=== PATIENT | male | born 1965 | race Hispanic/Latino ===

== ENCOUNTER 2019-05-29 14:17 | Inpatient (IN) | payer OTHER ==
[~2019-05-29] VITALS: Ht 165.1 cm; Wt 69.3 kg
[2019-05-29 14:47] LABS: BASOPHILS % (AUTO) 0.8 % (0.0-5.0); MEAN CORPUSCULAR HEMOGLOBIN 31.7 pg (27.0-33.0); MEAN CORPUSCULAR HGB CONC 34.7 g/dL (32.0-36.0); MEAN CORPUSCULAR VOLUME 91.4 fL (79-99); MONOCYTES % (AUTO) 4.2 % (3.0-13.0); PLATELET COUNT (AUTO) 223 K/uL (130-400); RED CELL DISTRIBUTION WIDTH 16.2 % (11.0-15.5); WHITE BLOOD COUNT (AUTO) 7.8 K/uL (4.8-10.8)
[2019-05-29] MEDS ORDERED: METOCLOPRAMIDE 10 MG/2 ML VIAL ONE (14:50)
[2019-05-29] MEDS ORDERED: SODIUM CHLORIDE 0.9% 1000ML 1,000 ML IV ONE (14:51)
[2019-05-29 14:55] LABS: APPEARANCE,URINE Clear (CLEAR); BILIRUBIN,URINE Negative (NEGATIVE); COLOR,URINE Yellow (YELLOW); GLUCOSE, URINE (UA) 250 mg/dL (NEGATIVE); KETONES,URINE Negative (NEGATIVE); LEUKOCYTE ESTERASE ,URINE Negative (NEGATIVE); NITRATE,URINE Negative (NEGATIVE); OCCULT BLOOD,URINE Small (NEGATIVE); PH,URINE 5.5 (5.0-8.0); PROTEIN,URINE >=1000 mg/dL (NEGATIVE); UROBILINOGEN,URINE 0.2 mg/dL (0.2-1.0)
[2019-05-29 15:02] LABS: ALBUMIN 2.7 g/dL (3.5-5.0); BILIRUBIN,TOTAL 0.3 mg/dL (0.2-1.0); POTASSIUM 5.3 mmol/L (3.5-5.1); TOTAL PROTEIN, SERUM 6.7 g/dL (6.0-8.3)
[2019-05-29 15:03] LABS: CREATININE 12.6 mg/dL (0.5-1.5); HEMATOCRIT 19.2 % (42-54)
[2019-05-29 15:03] LABS: AMPHET/METH SCREEN,URINE NEGATIVE (NEGATIVE); BARBITURATE SCREEN, URINE NEGATIVE (NEGATIVE); BENZODIAZEPINES SCREEN,URINE NEGATIVE (NEGATIVE); CANNABINOID SCREEN,URINE NEGATIVE (NEGATIVE); COCAINE SCREEN,URINE NEGATIVE (NEGATIVE); OPIATE SCREEN,URINE NEGATIVE (NEGATIVE); PHENCYCLIDINE SCREEN,URINE NEGATIVE (NEGATIVE)
[2019-05-29 15:17] LABS: BACTERIA,URINE Few /HPF (None Seen); MUCUS,URINE Few LPF (None Seen)
[2019-05-29] MEDS ORDERED: SODIUM CHLORIDE 0.9% 1000ML 1,000 ML IV SCH (19:00)
[2019-05-29] MEDS ORDERED: ONDANSETRON HCL 4 MG/2 ML VIAL IVP PRN (19:00)
[2019-05-29 19:53] LABS: ABG BASE EXCESS -15.2 mmol/L (-2.0-3.0); ABG HCO3 10.2 mmol/L (21.0-28.0); ABG OXYGEN SATURATION 97.9 % (95.0-99.0); ABG PCO2 24 mmHg (35-48)
[2019-05-29] MEDS ORDERED: SODIUM BICARB 50MEQ 50ML VIAL ONE (20:18)
[2019-05-29 20:45] VITALS: BP 154/84
[2019-05-29] MEDS: METOCLOPRAMIDE 10 MG/2 ML VIAL IVP SCH (22:07)
[2019-05-29] MEDS ORDERED: AMLO10TA7 PO (22:28)
[2019-05-29] MEDS ORDERED: VIT-7 PO (22:28)
[2019-05-29] MEDS ORDERED: CLOP75TA32 PO (22:28)
[2019-05-29] MEDS ORDERED: LISI-613 PO (22:28)
[2019-05-29] MEDS ORDERED: FERR-82 PO (22:28)
[2019-05-29] MEDS ORDERED: CHOL100040 PO (22:28)
[2019-05-29 23:48] VITALS: BP 142/70
--- NOTE | 2019-05-30 01:30 | NUR ---
BLOOD PATIENT AWAKE AND ALERT IN BED, VOICES ALL NEEDS. NO COMPLAINTS OF PAIN VOICED AT THIS TIME. RESP EVEN AND UNLABORED. NO SOB NOTED. COMPLETED UNIT OF PACKED RBCS. NO ADVERSE REACTIONS NOTED. TOLERATED WELL. NO SIGNS OF DISTRESS NOTED. NPO. SPOUSE AT BEDSIDE TO ASSIST WITH ADLS. CALL LIGHT WITHIN REACH. WILL CONTINUE TO BE OBSERVED. Addendum: 05/30/19 at 0356 by ELVI PAULINO RN RN Amended: Links added.
[2019-05-30 04:20] VITALS: BP 147/75
[2019-05-30 06:03] LABS: BASOPHILS % (AUTO) 0.6 % (0.0-5.0); EOSINOPHILS % (AUTO) 0.8 % (0.0-8.0); HEMATOCRIT 21.5 % (42-54); LYMPHOCYTES % (AUTO) 22.1 % (21.0-51.0); MEAN CORPUSCULAR HEMOGLOBIN 30.8 pg (27.0-33.0); MEAN CORPUSCULAR VOLUME 90.6 fL (79-99); MONOCYTES % (AUTO) 7.6 % (3.0-13.0); NEUTROPHILS % (AUTO) 68.9 % (40.0-77.0); PLATELET COUNT (AUTO) 219 K/uL (130-400); RED BLOOD CELL COUNT(AUTO) 2.37 MIL/uL (4.50-6.20); RED CELL DISTRIBUTION WIDTH 15.6 % (11.0-15.5); WHITE BLOOD COUNT (AUTO) 8.4 K/uL (4.8-10.8)
[2019-05-30 06:16] LABS: ALBUMIN 2.6 g/dL (3.5-5.0); BILIRUBIN,TOTAL 0.3 mg/dL (0.2-1.0); POTASSIUM 5.1 mmol/L (3.5-5.1); TOTAL PROTEIN, SERUM 6.4 g/dL (6.0-8.3)
[2019-05-30 06:23] LABS: CREATININE 11.9 mg/dL (0.5-1.5)
[2019-05-30 08:03] VITALS: BP 146/72
[2019-05-30] MEDS: METOCLOPRAMIDE 10 MG/2 ML VIAL IVP SCH ×4 (08:22→20:10)
[2019-05-30] MEDS: FAMOTIDINE/PF 20 MG/2 ML VIAL IV SCH (08:22)
[2019-05-30 12:17] VITALS: BP 152/70
--- NOTE | 2019-05-30 13:25 | NUR ---
DR. ANN VISITED WITH PATIENT. POC DISCUSSED. FOR NOW, PATIENT DOES NOT WANT DIALYSIS. DR ANN WANTS CASE ,TILE PROFESSIONAL TO CHECK IF PT QUALIFIES FOR DIALYSIS. PATIENT WANTS MORE INFORMATION REGARDING DIALYSIS. NEW ORDERS RECEIVED AND CARRIED OUT.
[2019-05-30 16:00] VITALS: BP 162/88
--- NOTE | 2019-05-30 18:23 | NUR ---
INITIAL" Met with pt and family this afternoon to discuss dcp. Pt mentions that he lives w his spouse and children. Prior to admission was using a wc or front wheeled walker for ambulation. Pt mentions that his spouse assists w ADLs. He is currently refusing HD. Low income packet provided to pt. CM to continue to follow. Will ask help mary to leslie for regarding poss of qualifying for HD coverage. Addendum: 05/30/19 at 1825 by DENITA ORELLANA Amended: Links added.
[2019-05-30 20:00] VITALS: BP 153/75
[2019-05-31] VITALS (17 sets, daily range): BP systolic 127–187; BP diastolic 69–97
[2019-05-31 06:16] LABS: MEAN CORPUSCULAR HEMOGLOBIN 30.8 pg (27.0-33.0); MEAN CORPUSCULAR HGB CONC 33.6 g/dL (32.0-36.0); MEAN CORPUSCULAR VOLUME 91.6 fL (79-99); PLATELET COUNT (AUTO) 187 K/uL (130-400); RED BLOOD CELL COUNT(AUTO) 2.27 MIL/uL (4.50-6.20); RED CELL DISTRIBUTION WIDTH 15.8 % (11.0-15.5); WHITE BLOOD COUNT (AUTO) 7.4 K/uL (4.8-10.8)
[2019-05-31 06:30] LABS: % IRON SATURATION 62.2 % (30-44)
[2019-05-31 06:40] LABS: HEMATOCRIT 20.8 % (42-54)
[2019-05-31 06:46] LABS: ALBUMIN 2.4 g/dL (3.5-5.0); BILIRUBIN,TOTAL 0.3 mg/dL (0.2-1.0); MAGNESIUM 1.7 mg/dL (1.80-2.40); PHOSPHORUS 9.1 mg/dL (2.5-4.9); THYROID STIMULATING HORMONE 1.6 uIU/mL (0.36-3.74); TOTAL PROTEIN, SERUM 5.9 g/dL (6.0-8.3); URIC ACID 8.2 mg/dL (2.6-7.2)
[2019-05-31 06:49] LABS: CREATININE 11.6 mg/dL (0.5-1.5)
[2019-05-31 06:58] LABS: HEMOGLOBIN A1C 4.6 % (4.0-6.0)
[2019-05-31 07:14] LABS: POTASSIUM 5.1 mmol/L (3.5-5.1)
--- NOTE | 2019-05-31 07:18 | NUR ---
HGB AND HCT CRITICAL RESULTS CALLED IN TO HOSPITALIST. SARAH ESQUIVEL CALLED AND AWARE. NO NEW ORDERS AT THIS TIME. JAVA DEVELOPER CONSULTANT WILL BE MAKING ROUNDS IN AM. PATIENT ENDORSED TO MARCELA IBANEZ. Addendum: 05/31/19 at 0720 by ELVI PAULINO RN RN Amended: Links added.
[2019-05-31] MEDS: FAMOTIDINE/PF 20 MG/2 ML VIAL IV SCH (08:13)
[2019-05-31] MEDS: METOCLOPRAMIDE 10 MG/2 ML VIAL IVP SCH ×4 (08:13→20:51)
[2019-05-31] MEDS: AMLODIPINE BESYLATE 5 MG TAB PO SCH (08:13)
[2019-05-31] MEDS: FOLIC ACID/VITAMIN B COMP W-C 1 MG CAP/TAB PO SCH (08:14)
[2019-05-31] MEDS: CLOPIDOGREL BISULFATE 75 MG TAB PO SCH (08:14)
[2019-05-31] MEDS: LISINOPRIL 20 MG TABLET PO SCH (08:14)
[2019-05-31] MEDS: FERROUS SULFATE 325 MG TABLET.DR PO SCH (08:14)
[2019-05-31] MEDS: **HM**Cholecalciferol (Vitamin D3) (Vitamin D3) 1,000 UNIT PO SCH (08:27)
[2019-05-31] MEDS ORDERED: FOLIC ACID/VITAMIN B COMP W-C 1 MG CAP/TAB PO SCH (09:00)
--- NOTE | 2019-05-31 09:30 | NUR ---
PAGED DR. ANN TO REPORT THE HGB OF 7.0. PER HOSPITALIST THEY WILL NOT ORDER TRANSFUSION AND WANTED DR. ANN WILL ORDER TRANSFUSION OR START THE PATIENT ON EPOGEN.
[2019-05-31 12:33] LABS: HEMATOCRIT 21.9 % (42-54)
--- NOTE | 2019-05-31 13:16 | NUR ---
DR. ANN SPOKE TO THE PATIENT AND EXPLAINED THE BENEFIT OF DIALYSIS AND THE NON TREATMENT IN THE PRESENCE OF THE FAMILY. THE PATIENT SEEMED WAS NOT WELL EDUCATED ABOUT THE DIALYSIS. DR. ANN ASK THEM TO DISCUSSED IT AND TO INFORM ME IF THEY DECIDED TO GO DIALYSIS.
--- NOTE | 2019-05-31 14:06 | NUR ---
THE PATIENT AND THE FAMILY DECIDED TO GO FOR DIALYSIS AND INFORMED THE PATIENT THAT HE WILL HAVE A DIALYSIS ACCESS PLACEMENT WHICH IS THE PERMACATH TEMPORARILY. WILL HAVE THE LEFT ARM PRESERVE PER DR. ANN'S INSTRUCTION. WILL CALL THE THE METAL DRESSER AND SENIOR SYSTEMS PROGRAMMER FOR THE PROCEDURE.
[2019-05-31 14:48] LABS: INR 0.93 (0.85-1.15); PROTHROMBIN TIME 9.8 SEC (9.6-11.6)
[2019-05-31] MEDS ORDERED: LIDOCAINE HCL 1% MDV 50ML VIAL ONE (15:23)
--- NOTE | 2019-05-31 15:50 | NUR ---
CM Note: [facility] [place] pending approval and chair time CM met with pt discussed MD recommendation for outpatient hemodialysis, pt agreeable, getting ready for permacath placement, requested for spouse to be called, stated she is ok to signed consent. Called spouse as per pt request, telephone consent obtained for JOHN to [facility] [place]. CM faxed order and clinicals, confirmation received. Pt pending labs, permacath info and order to use, dialysis #1,#2,#3. Will fax clinicals/info once available. Pt pending approva, acceptance, and chair time. Primary nurse aware. CM to cont to follow up.
--- NOTE | 2019-05-31 15:52 | NUR ---
RD NOTIFICATION DX: ACUTE KIDNEY INJURY. DIET: RENAL NON-DIALYSIS, FLUID RESTRICTION: 1500MLS/D. LBM: 05/28. PO INTAKE: 100% AND HAS GREAT APPETITE. PT WILL BE STARTING DIALYSIS TREATMENT FOR THE FIRST- TIME VIA AV ACCESS TOMORROW PER DR. ANGUIANO. NO NAUSEA, VOMITING OR DIARRHEA [id number]. PT EATS 2 TO 3 TIMES A DAY, COOKS AT HOME. RD PROVIDED DIET AND NUTRITION EDUCATION REGARDING HEART HEALTHY AND RENAL DIALYSIS DIET. ASKED QUESTIONS REGARDING HIS DIET, RD ANSWERED AND VERBALIZED UNDERSTANDING. RD RECOMMENDS TO CHANGE DIET ORDER TO RENAL DIALYSIS ONCE TREATMENT STARTS. CONTINUE FLUID RESTRICTION. RD PROVIDED RENAL DIALYSIS AND HEART HEALTHY DIET AND NUTRITION EDUCATION. RD WILL CONTINUE TO MONITOR AND FOLLOW UP NEEDED. THANK YOU. Addendum: 05/31/19 at [address] Amended: Links added.
--- NOTE | 2019-05-31 15:54 | NUR ---
DIET EDUCATION PT EATS 2 TO 3 TIMES A DAY, COOKS AT HOME. CASSY PROVIDED DIET AND NUTRITION EDUCATION REGARDING HEART HEALTHY AND RENAL DIALYSIS DIET. ASKED QUESTIONS REGARDING HIS DIET, CASSY ANSWERED AND VERBALIZED UNDERSTANDING. Addendum: 05/31/19 at [address] Amended: Links added.
--- NOTE | 2019-05-31 16:23 | NUR ---
I received pt from special procedures dep. where he received a right chest perma a cath; there is small amount of bloody drainage on the insertion site dressing; pt is sitting up at 45 degrees as ordered; pt is being prepped for dialysis now. he has no c/o pain at this time. [id number]
--- NOTE | 2019-05-31 16:33 | NUR ---
HOB at 45 Addendum: 05/31/19 at 1634 by STEPHEN SHEPPARD RN RN Amended: Links added.
[2019-05-31] MEDS ORDERED: HEPARIN SODIUM 5000UNIT/ML 1ML VIAL ONE (18:02)
[2019-05-31] MEDS ORDERED: 0.9% SODIUM CHLORIDE 1000 ML IV BAG IV PRN (18:30)
[2019-05-31] MEDS ORDERED: NITROGLYCERIN 0.4 MG SL TAB SL PRN (18:30)
[2019-05-31] MEDS ORDERED: SODIUM CHLORIDE 0.9% 1000ML 1,000 ML IV PRN (18:30)
[2019-05-31] MEDS ORDERED: HEPARIN SODIUM 5000UNIT/ML 1ML VIAL IJ PRN ×2 (18:30)
[2019-05-31] MEDS ORDERED: LIDOCAINE HCL-MPF 1% 2ML VIAL IJ PRN (18:30)
[2019-05-31] MEDS ORDERED: ACETAMINOPHEN 325 MG TAB PO PRN (18:30)
[2019-05-31 19:09] LABS: HEMATOCRIT 19.6 % (42-54)
--- NOTE | 2019-05-31 19:12 | NUR ---
RECEIVED A CRITICAL LAB OF HBG 6.9 AND HEMOTOCRIT 19.6. PAGED THE HOSPITALIST CHIEF BUSINESS OFFICER.
--- NOTE | 2019-05-31 19:15 | NUR ---
SPOKE TO [facility]IST [facility] ORDERLY TONIGHT. NO ORDERS WAS GIVEN VERBALIZED THAT THIS PATIENT IS RENAL FAILURE AND WILL WAIT FOR DR. ANN'S RECOMMENDATION.
[2019-05-31 19:20] LABS: ALBUMIN 2.6 g/dL (3.5-5.0); CREATININE 6.4 mg/dL (0.5-1.5)
[2019-05-31 19:40] LABS: % IRON SATURATION 52.8 % (30-44)
[2019-05-31 19:46] LABS: HEMOGLOBIN A1C 4.8 % (4.0-6.0)
--- NOTE | 2019-06-01 00:46 | NUR ---
ANAID, HOSPITALIST BEAUTY CONSULTANT PT'S DRESSING FROM PERM A CATH, ACTIVELY BLEEDING
--- NOTE | 2019-06-01 01:13 | NUR ---
CONVEYOR SYSTEM OPERATOR STATE TO GET SURGICEL AND PAGE DIALYSIS NURSE RADIAGRAPH OPERATOR
[2019-06-01 01:43] VITALS: BP 156/75
--- NOTE | 2019-06-01 01:43 | NUR ---
PER DIALYSIS NURSE SHE DOES NOT KNOW HOW TO USE THE SURGICEL - BUT STATES SHE IS ON HER WAY PT BP IS 156/75 HR 99 PT DENIES SOB OR CHEST PAIN PRESSURE DRESSING APPLIED WILL CONITNUE TO KAIT
--- NOTE | 2019-06-01 02:15 | NUR ---
GAUZE , SATURATED WITH BLOOD AGAIN, PAGED VENEER DRIER FEEDER SENIOR TECHNICAL TRAINER PENDING CALL BACK PENDING DIALYSIS NURSE TO ARRIVE WELL
--- NOTE | 2019-06-01 02:30 | NUR ---
PER ROVING DEPARTMENT END FINDER , SHE WILL BE HERE AT BED SIDE TO DO DRESSING CHANGE
[2019-06-01 04:10] VITALS: BP 156/85
[2019-06-01 06:03] LABS: MEAN CORPUSCULAR HEMOGLOBIN 31.1 pg (27.0-33.0); MEAN CORPUSCULAR HGB CONC 34.9 g/dL (32.0-36.0); MEAN CORPUSCULAR VOLUME 88.9 fL (79-99); PLATELET COUNT (AUTO) 177 K/uL (130-400); RED CELL DISTRIBUTION WIDTH 15.4 % (11.0-15.5); WHITE BLOOD COUNT (AUTO) 7.4 K/uL (4.8-10.8)
[2019-06-01 06:05] LABS: HEMATOCRIT 19.6 % (42-54)
--- NOTE | 2019-06-01 06:10 | NUR ---
dr. irina jauregui for hemoglobin , and hematocrit
[2019-06-01 06:21] LABS: POTASSIUM 4.2 mmol/L (3.5-5.1)
[2019-06-01 06:26] LABS: CREATININE 8.8 mg/dL (0.5-1.5)
--- NOTE | 2019-06-01 07:00 | NUR ---
PT'S DRESSING FROM PER MA CATH BLEEDING AGAIN HOSPITALIST PAGED NEW PRESSURE DRESSING APPLIED HEMODIALYSIS NURSE COKE INSPECTOR, [place] AWARE OF PRBC ORDERED
[2019-06-01 07:30] VITALS: BP 159/88
[2019-06-01] MEDS: METOCLOPRAMIDE 10 MG/2 ML VIAL IVP SCH ×4 (07:47→21:00)
[2019-06-01] MEDS: FOLIC ACID/VITAMIN B COMP W-C 1 MG CAP/TAB PO SCH (07:47)
[2019-06-01] MEDS: FAMOTIDINE/PF 20 MG/2 ML VIAL IV SCH (07:47)
[2019-06-01 07:51] LABS: EOSINOPHILS % (MANUAL) 5 % (1-6); LYMPHOCYTES % (MANUAL) 22 % (22-44); MAN.DIFF COMMENT-IMPRESSION MANUAL DIFFERENTIAL; MONOCYTES % (MANUAL) 4 % (2-9); PLATELET MORPHOLOGY COMMENT ADEQUATE; SEGMENTED NEUTROPHILS % 69 % (40-70)
[2019-06-01] MEDS: **HM**Cholecalciferol (Vitamin D3) (Vitamin D3) 1,000 UNIT PO SCH (09:00)
[2019-06-01] MEDS: CLOPIDOGREL BISULFATE 75 MG TAB PO SCH (09:00)
[2019-06-01] MEDS: FERROUS SULFATE 325 MG TABLET.DR PO SCH (09:53)
[2019-06-01 11:00] VITALS: BP 153/80
[2019-06-01] MEDS ORDERED: EPOETIN ALFA 10,000 UNIT/ML VIAL SQ SCH (12:00)
--- NOTE | 2019-06-01 13:05 | NUR ---
notified dr gaitan office for the consult.
[2019-06-01 16:00] VITALS: BP 147/91
[2019-06-01] MEDS: AMLODIPINE BESYLATE 5 MG TAB PO SCH (18:20)
[2019-06-01] MEDS: LISINOPRIL 20 MG TABLET PO SCH (18:21)
[2019-06-01 20:00] VITALS: BP 158/84
[2019-06-02] VITALS (7 sets, daily range): BP systolic 144–155; BP diastolic 78–86
[2019-06-02 05:32] LABS: BASOPHILS % (AUTO) 0.4 % (0.0-5.0); EOSINOPHILS % (AUTO) 1.5 % (0.0-8.0); HEMATOCRIT 21.3 % (42-54); LYMPHOCYTES % (AUTO) 25.6 % (21.0-51.0); MEAN CORPUSCULAR HGB CONC 35.2 g/dL (32.0-36.0); MEAN CORPUSCULAR VOLUME 88.1 fL (79-99); MONOCYTES % (AUTO) 12.7 % (3.0-13.0); NEUTROPHILS % (AUTO) 59.8 % (40.0-77.0); PLATELET COUNT (AUTO) 141 K/uL (130-400); RED BLOOD CELL COUNT(AUTO) 2.42 MIL/uL (4.50-6.20); RED CELL DISTRIBUTION WIDTH 16.5 % (11.0-15.5)
[2019-06-02 05:49] LABS: CREATININE 6.8 mg/dL (0.5-1.5); POTASSIUM 3.8 mmol/L (3.5-5.1)
[2019-06-02 08:12] LABS: HEPATITIS Bs ANTIGEN SCREEN P Negative (Negative)
[2019-06-02] MEDS: FAMOTIDINE/PF 20 MG/2 ML VIAL IV SCH (08:17)
[2019-06-02] MEDS: METOCLOPRAMIDE 10 MG/2 ML VIAL IVP SCH ×4 (08:17→20:52)
[2019-06-02] MEDS: AMLODIPINE BESYLATE 5 MG TAB PO SCH (08:18)
[2019-06-02] MEDS: FERROUS SULFATE 325 MG TABLET.DR PO SCH (08:18)
[2019-06-02] MEDS: FOLIC ACID/VITAMIN B COMP W-C 1 MG CAP/TAB PO SCH (08:18)
[2019-06-02] MEDS: LISINOPRIL 20 MG TABLET PO SCH (08:18)
[2019-06-02] MEDS: **HM**Cholecalciferol (Vitamin D3) (Vitamin D3) 1,000 UNIT PO SCH (08:29)
--- NOTE | 2019-06-02 11:12 | NUR ---
DIALYSIS TODAY Paged Dr. Fernandez to ask if patients going to have hemodialysis today and also if procrit is needed to be administered today. pending for him to call back.
--- NOTE | 2019-06-02 11:31 | NUR ---
DIALYSIS FOLLOW UP Dr. Fernandez states if arteriovenous fistula surgery will be done tomorrow, then do hemodialysis today and administer procrit 10,000u SQ after hemodialysis.
--- NOTE | 2019-06-02 12:10 | NUR ---
CM Note: [facility] preliminary chair time TTS 4th shift after 6:30pm CM spoke to Jazmin noble/[facility], received updated clinicals, labs, permacath info and order, aware pt pending vein mapping and av fistula placement and #3 dialysis, will send info once available. Pt has preliminary chair time TTS 4th shift after 6:30pm, pending finalized approval from admin. Primary nurse aware. CM to cont to follow up.
--- NOTE | 2019-06-02 12:16 | NUR ---
DIALYSIS NURSE Ina, Hemodialysis Charge Nurse, has been notified that dialysis is due today because AVF surgery will not be done today as confirmed with Josefina Finch, MARCELA for for Dr. Palomino. Ina is aware patient needs to have HD today and also procrit administration.
[2019-06-02] MEDS ORDERED: EPOETIN ALFA 10,000 UNIT/ML VIAL SQ SCH (18:00)
[2019-06-03] MEDS: HYDROXYZINE HCL 25 MG TABLET PO PRN ×2 (00:49→20:41)
[2019-06-03 03:42] VITALS: BP 139/80
[2019-06-03 05:06] LABS: BASOPHILS % (AUTO) 0.7 % (0.0-5.0); EOSINOPHILS % (AUTO) 1.7 % (0.0-8.0); HEMATOCRIT 24.4 % (42-54); LYMPHOCYTES % (AUTO) 29.8 % (21.0-51.0); MEAN CORPUSCULAR HEMOGLOBIN 30.3 pg (27.0-33.0); MEAN CORPUSCULAR HGB CONC 34.7 g/dL (32.0-36.0); MEAN CORPUSCULAR VOLUME 87.4 fL (79-99); MONOCYTES % (AUTO) 13.5 % (3.0-13.0); NEUTROPHILS % (AUTO) 54.3 % (40.0-77.0); PLATELET COUNT (AUTO) 172 K/uL (130-400); RED BLOOD CELL COUNT(AUTO) 2.79 MIL/uL (4.50-6.20); RED CELL DISTRIBUTION WIDTH 15.9 % (11.0-15.5); WHITE BLOOD COUNT (AUTO) 10.5 K/uL (4.8-10.8)
[2019-06-03 05:28] LABS: CREATININE 5.3 mg/dL (0.5-1.5); POTASSIUM 3.8 mmol/L (3.5-5.1)
[2019-06-03] MEDS: METOCLOPRAMIDE 10 MG/2 ML VIAL IVP SCH ×4 (06:38→20:37)
[2019-06-03 07:46] VITALS: BP 158/74
[2019-06-03] MEDS: **HM**Cholecalciferol (Vitamin D3) (Vitamin D3) 1,000 UNIT PO SCH (09:00)
[2019-06-03] MEDS: FAMOTIDINE/PF 20 MG/2 ML VIAL IV SCH (11:23)
[2019-06-03] MEDS: AMLODIPINE BESYLATE 5 MG TAB PO SCH (11:24)
[2019-06-03] MEDS: FOLIC ACID/VITAMIN B COMP W-C 1 MG CAP/TAB PO SCH (11:24)
[2019-06-03] MEDS: LISINOPRIL 20 MG TABLET PO SCH (11:25)
[2019-06-03] MEDS: FERROUS SULFATE 325 MG TABLET.DR PO SCH (11:26)
[2019-06-03 11:59] VITALS: BP 151/82
--- NOTE | 2019-06-03 14:31 | NUR ---
CM Note: [facility] approval chair time TTS 4th shift. Spoke to Normal w/[facility], pt has approval and chair time TTS 4th shift after 6:30 pm. Aware pt pending AV Fistula placement prior to DC. Pt made aware and given instructions to register Friday morning if dc'd over the weekend, aware to bring ID card, Insurance Card, and medication bottles during registration, verbalized understanding. Primary nurse aware. CM to cont to follow up.
--- NOTE | 2019-06-03 15:11 | NUR ---
RD NOTIFICATION/ FOLLOW UP DX: ACUTE KIDNEY INJURY. DIET: RENAL DIALYSIS. LBM: 06/02. PT NEW TO DIALYSIS. RD PROVIDED RENAL DIALYSIS DIET AND NUTRITION EDUCATION ON 05/31. SKIN INTACT, NO EDEMA. PO INTAKE 100% AND HAS GREAT APPETITE PER PT. NO NAUSEA, VOMITING, OR DIARRHEA. PT TOLERATING DIET WELL. RD RECOMMENDS TO CONTINUE CURRENT DIET. DIET AND NUTRITION EDUCATION COMPLETED. RD WILL CONTINUE TO MONITOR AND FOLLOW UP NEEDED. THANK YOU. Addendum: 06/03/19 at [address] Amended: Links added.
[2019-06-03 16:34] VITALS: BP 121/70
--- NOTE | 2019-06-03 18:00 | NUR ---
NURSING NOTE Spoke to Josefina Finch, MARCELA for Dr. Palomino twice today. Informed her of the thrombus on cephalic vein in left mid forearm. Also, that plavix is on hold since 05/31. Stated she will convey information to Dr. Palomino and that so far she has not talked to him but that she will make him aware of this information. Pending date for AV fistula surgery. Dr. Hoskins and Nurse Practitioner Ana are both aware of the thrombus as is Dr. Fernandez. No treatment for now, just monitoring, per Ana. Both Dr. Estrada and Dr. Fernandez stated to call Dr. Palomino and informed him. Patient has been informed and he is aware.
[2019-06-03 19:53] VITALS: BP 141/81
--- NOTE | 2019-06-03 20:24 | NUR ---
DIALYSIS TOMORROW Notified Ina Balderrama RN. Stated Gabrielle will be the nurse and she will text him. Patient will be scheduled for last.
[2019-06-03 23:34] VITALS: BP 145/80
[2019-06-04 03:35] VITALS: BP 148/80
[2019-06-04 05:04] LABS: BASOPHILS % (AUTO) 0.8 % (0.0-5.0); EOSINOPHILS % (AUTO) 2.6 % (0.0-8.0); HEMATOCRIT 22.5 % (42-54); LYMPHOCYTES % (AUTO) 21.9 % (21.0-51.0); MEAN CORPUSCULAR HEMOGLOBIN 30.9 pg (27.0-33.0); MEAN CORPUSCULAR HGB CONC 34.7 g/dL (32.0-36.0); MONOCYTES % (AUTO) 12.3 % (3.0-13.0); NEUTROPHILS % (AUTO) 62.4 % (40.0-77.0); NUCLEATED RED BLOOD CELLS 0.3 % (0.0-0.19); PLATELET COUNT (AUTO) 165 K/uL (130-400); RED BLOOD CELL COUNT(AUTO) 2.53 MIL/uL (4.50-6.20); RED CELL DISTRIBUTION WIDTH 16.4 % (11.0-15.5); WHITE BLOOD COUNT (AUTO) 9.2 K/uL (4.8-10.8)
[2019-06-04 05:30] LABS: CREATININE 7.2 mg/dL (0.5-1.5); POTASSIUM 3.7 mmol/L (3.5-5.1)
[2019-06-04] MEDS: METOCLOPRAMIDE 10 MG/2 ML VIAL IVP SCH ×4 (06:30→19:57)
[2019-06-04 08:00] VITALS: BP 149/80
[2019-06-04] MEDS: FAMOTIDINE/PF 20 MG/2 ML VIAL IV SCH (09:00)
[2019-06-04] MEDS: LISINOPRIL 20 MG TABLET PO SCH (09:00)
[2019-06-04] MEDS: AMLODIPINE BESYLATE 5 MG TAB PO SCH (09:00)
[2019-06-04] MEDS: **HM**Cholecalciferol (Vitamin D3) (Vitamin D3) 1,000 UNIT PO SCH (09:00)
[2019-06-04] MEDS: FOLIC ACID/VITAMIN B COMP W-C 1 MG CAP/TAB PO SCH (09:00)
[2019-06-04] MEDS: FERROUS SULFATE 325 MG TABLET.DR PO SCH (09:00)
[2019-06-04 12:00] VITALS: BP 132/71
--- NOTE | 2019-06-04 13:40 | NUR ---
CALL DR. BURTON OFFICE TO FOLLOW UP IF THERE WILL BE SURGERY FOR PLACEMENT OF AV ACCESS. THE OFFICE PERSONNEL VERBALIZED THAT THEY WILL CALL BACK TO TELL ME THE PLAN. I GAVE MY [facility] PHONE AND CHARGE NURSE [facility] PHONE IF WONT BE ABLE TO ANSWER THE CALL BACK.
--- NOTE | 2019-06-04 14:33 | NUR ---
SEND A MESSAGE TO JOSE THE COVERAGE SPECIALIST OF DR. BURTON TO FOLLOW UP THE PLAN OF CARE. THE PATIENT WANTING TO KNOW WHEN WILL BE THE SURGERY FOR AV ACCESS. NOTIFIED CHARGE NURSE.
[2019-06-04 16:00] VITALS: BP 108/78
[2019-06-04 19:56] VITALS: BP 145/79
[2019-06-04 23:29] VITALS: BP 133/73
[2019-06-05 04:00] VITALS: BP 145/80
[2019-06-05 05:36] LABS: BASOPHILS % (AUTO) 0.8 % (0.0-5.0); EOSINOPHILS % (AUTO) 2.4 % (0.0-8.0); HEMATOCRIT 22.3 % (42-54); LYMPHOCYTES % (AUTO) 22.5 % (21.0-51.0); MEAN CORPUSCULAR HEMOGLOBIN 30.2 pg (27.0-33.0); MEAN CORPUSCULAR HGB CONC 33.6 g/dL (32.0-36.0); MEAN CORPUSCULAR VOLUME 89.8 fL (79-99); MONOCYTES % (AUTO) 13.4 % (3.0-13.0); NEUTROPHILS % (AUTO) 60.9 % (40.0-77.0); NUCLEATED RED BLOOD CELLS 0.1 % (0.0-0.19); PLATELET COUNT (AUTO) 195 K/uL (130-400); RED BLOOD CELL COUNT(AUTO) 2.49 MIL/uL (4.50-6.20); RED CELL DISTRIBUTION WIDTH 16.3 % (11.0-15.5); WHITE BLOOD COUNT (AUTO) 8.3 K/uL (4.8-10.8)
[2019-06-05 05:49] LABS: CREATININE 5.6 mg/dL (0.5-1.5); POTASSIUM 4.2 mmol/L (3.5-5.1)
[2019-06-05] MEDS: METOCLOPRAMIDE 10 MG/2 ML VIAL IVP SCH ×2 (06:15→11:30)
[2019-06-05 08:00] VITALS: BP 132/75
--- NOTE | 2019-06-05 08:38 | NUR ---
DR. Dhruv BURTON SPOKE TO MD DIRECTLY VIA TELEPHONE, . SPOKE TO MD REGARDING PLAN FOR AV ACCESS. DR. BURTON ASKED ME "WHEN IS PATIENT BEING DISCHARGED?", I REPLIED TO DR. BURTON THAT THERE IS NO PLAN FOR DISCHARGE AT THIS TIME WE ARE PENDING FOR AV ACCESS PLACEMENT PLAN. DR. Dhruv BURTON THEN REPLIED "ASK DR. ANN WHEN HE WANTS ME TO DUE THE PROCEDURE. I CAN DO IT TOMORROW (06/06/19) OR FRIDAY (06/07/19). LET ME KNOW WHAT DR. ANN WANTS." I ALSO TOLD DR. BURTON THAT VEIN MAPPING HAS BEEN DONE AND RESULTS. DR. BURTON REPLIED THAT IF THROMBUS IS SEEN ON LEFT ARM, HE CAN JUST DO THE ACCESS ON THE RIGHT ARM. I ALSO TOLD DR. BURTON THAT PATIENT HAS NOT TAKEN PLAVIX FOR [address] BURTON REPLIED "THAT IS FINE. YOU CAN TEXT ME WHAT DR. ANN WANTS Addendum: 06/05/19 at 0919 by SUZIE BRYANT RN RN CONTINUED FROM ABOVE NOTE: "...WHAT DR. ANN WANTS." I CLARIFIED TO DR. BURTON "SO, I WILL ASK DR. ANN WHEN HE WANTS YOU TO PERFORM THE PROCEDURE [AV ACCESS PLACEMENT] AND THEN I WILL NOTIFY YOU." DR. BURTON REPLIED "YES."
[2019-06-05] MEDS: **HM**Cholecalciferol (Vitamin D3) (Vitamin D3) 1,000 UNIT PO SCH (09:00)
[2019-06-05 11:00] VITALS: BP 137/74
[2019-06-05] MEDS: FOLIC ACID/VITAMIN B COMP W-C 1 MG CAP/TAB PO SCH (11:03)
[2019-06-05] MEDS: LISINOPRIL 20 MG TABLET PO SCH (11:03)
[2019-06-05] MEDS: FERROUS SULFATE 325 MG TABLET.DR PO SCH (11:04)
[2019-06-05] MEDS: FAMOTIDINE/PF 20 MG/2 ML VIAL IV SCH (11:04)
[2019-06-05] MEDS: AMLODIPINE BESYLATE 5 MG TAB PO SCH (11:04)
--- NOTE | 2019-06-05 12:40 | NUR ---
DR. Dhruv CORTEZ MD HERE TO SEE PATIENT. INFORMED MD THAT DR. BURTON WANTS NEPHROLOGY RECOMMENDATIONS ON WHEN TO PLACE AV ACCESS. DR. Dhruv CORTEZ TOLD ME TO INFORM DR. BURTON THAT AV ACCESS PLACEMENT PROCEDURE CAN BE SOON TOMORROW (06/06/19) IF POSSIBLE. DR. SABA CORTEZ FURTHER EXPLAINED THAT PATIENT NEEDS AV ACCESS PRIOR TO DISCHARGE FROM HOSPITAL.
--- NOTE | 2019-06-05 12:45 | NUR ---
DR. Dhruv BURTON SENT TEXT MESSAGE TO DR. Dhruv BURTON, PER MD REQUEST EARLIER TODAY, INFORMING MD THAT NEPHROLOGY (DR. Dhruv CORTEZ), SAID PATIENT CAN RECEIVE AV ACCESS PLACEMENT PROCEDURE TOMORROW. I ALSO ADDED IN MESSAGE THAT DR. SABA CORTEZ NEEDS PATIENT TO RECEIVE AV ACCESS PLACEMENT PRIOR TO DISCHARGE FROM HOSPITAL.
[2019-06-05 16:00] VITALS: BP 119/76
[2019-06-05] MEDS ORDERED: CEFAZOLIN SODIUM 1 GM VIAL IVP PRN (17:00)
[2019-06-05] MEDS: METOCLOPRAMIDE 10 MG TABLET PO SCH ×2 (19:30→20:46)
[2019-06-05 20:00] VITALS: BP 121/67
[2019-06-06] VITALS (28 sets, daily range): BP systolic 111–155; BP diastolic 27–76
[2019-06-06] MEDS: METOCLOPRAMIDE 10 MG TABLET PO SCH ×3 (05:19→19:40)
[2019-06-06 06:28] LABS: BASOPHILS % (AUTO) 0.8 % (0.0-5.0); EOSINOPHILS % (AUTO) 2.5 % (0.0-8.0); HEMATOCRIT 22.4 % (42-54); LYMPHOCYTES % (AUTO) 26.1 % (21.0-51.0); MEAN CORPUSCULAR HEMOGLOBIN 30.4 pg (27.0-33.0); MEAN CORPUSCULAR HGB CONC 33.4 g/dL (32.0-36.0); MONOCYTES % (AUTO) 10.6 % (3.0-13.0); NUCLEATED RED BLOOD CELLS 0.1 % (0.0-0.19); PLATELET COUNT (AUTO) 217 K/uL (130-400); RED BLOOD CELL COUNT(AUTO) 2.46 MIL/uL (4.50-6.20); RED CELL DISTRIBUTION WIDTH 16.8 % (11.0-15.5); WHITE BLOOD COUNT (AUTO) 7.9 K/uL (4.8-10.8)
[2019-06-06 06:39] LABS: INR 0.95 (0.85-1.15); PARTIAL THROMBOPLASTIN TIME 24.3 SEC (26.3-35.5)
--- NOTE | 2019-06-06 08:00 | NUR ---
AM ROUNDS: NPO, RT. PERMACATH DOUBLE PORT IN PLACE TO RT. SIDE CHEST.NO C/O OF ANY DISCOMFORT AND CONSENTS HAVE BEEN SIGNED.
[2019-06-06] MEDS: FOLIC ACID/VITAMIN B COMP W-C 1 MG CAP/TAB PO SCH (09:00)
[2019-06-06] MEDS: FAMOTIDINE/PF 20 MG/2 ML VIAL IV SCH (09:00)
[2019-06-06] MEDS: **HM**Cholecalciferol (Vitamin D3) (Vitamin D3) 1,000 UNIT PO SCH (09:00)
[2019-06-06] MEDS: LISINOPRIL 20 MG TABLET PO SCH (09:00)
[2019-06-06] MEDS: AMLODIPINE BESYLATE 5 MG TAB PO SCH (09:00)
[2019-06-06] MEDS: FERROUS SULFATE 325 MG TABLET.DR PO SCH (09:00)
[2019-06-06 10:03] LABS: CREATININE 7.5 mg/dL (0.5-1.5)
[2019-06-06 11:16] LABS: POTASSIUM 4.2 mmol/L (3.5-5.1)
--- NOTE | 2019-06-06 12:21 | NUR ---
TO OR NOW FOR PLACEMENT OF RT. AV GRAFT.
[2019-06-06] MEDS ORDERED: ROPIVACAINE 0.5% 5MG/ML 30ML IJ ONE (12:30)
[2019-06-06] MEDS ORDERED: LIDOCAINE HCL 2% 20ML ONE (12:30)
[2019-06-06] MEDS ORDERED: MIDAZOLAM HCL 1 MG/ML 2ML VIAL ONE (12:31)
[2019-06-06] MEDS ORDERED: LIDOCAINE PF 2% 5ML ABBOJECT ONE (12:47)
[2019-06-06] MEDS ORDERED: ROCURONIUM 10MG/1ML SYR 10 MG/ML ML ONE (12:48)
[2019-06-06] MEDS ORDERED: PROPOFOL 10 MG/ML 20ML VIAL IV ONE (12:48)
[2019-06-06] MEDS ORDERED: BUPIVACAINE/PF 0.25% 30ML VIAL IJ ONE (12:51)
[2019-06-06] MEDS ORDERED: BACITRACIN 50,000 UNIT VIAL ONE (12:51)
[2019-06-06] MEDS ORDERED: LIDOCAINE HCL 1% 20 ML VIAL ONE (12:51)
[2019-06-06] MEDS ORDERED: FENTANYL CITRATE PF 50 MCG/1 ML 2ML VIAL ONE (13:09)
[2019-06-06] MEDS ORDERED: TRAMADOL HCL 50 MG TABLET PO PRN ×2 (13:45)
--- NOTE | 2019-06-06 15:15 | NUR ---
POST OP NOTE: BACK FROM OR, AWAKE, ALERT AND HUNGRY. DRESSING TO AV GRAFT SITE RT UPPER ARM CLEAN, DRY AND WELL SECURED. ARM WARM WITH GOOD MOVEMENT AND STRONG PULSE. PERMACATH REMAINS IN PLACE TO RT. UPPER CHEST, DOUBLE PORT. DRESSINGS CLEAN DRY
--- NOTE | 2019-06-06 15:15 | NUR ---
FROM DR. BURTON STANDPOINT PT. CAN BE DISCHARGED
[2019-06-07 00:05] VITALS: BP 120/64
[2019-06-07 03:59] VITALS: BP 129/62
[2019-06-07 04:49] LABS: HEMATOCRIT 22.6 % (42-54); MEAN CORPUSCULAR HEMOGLOBIN 30.3 pg (27.0-33.0); MEAN CORPUSCULAR HGB CONC 33.4 g/dL (32.0-36.0); MEAN CORPUSCULAR VOLUME 90.9 fL (79-99); PLATELET COUNT (AUTO) 248 K/uL (130-400); RED BLOOD CELL COUNT(AUTO) 2.48 MIL/uL (4.50-6.20); WHITE BLOOD COUNT (AUTO) 8.1 K/uL (4.8-10.8)
[2019-06-07 05:00] LABS: PHOSPHORUS 7.6 mg/dL (2.5-4.9); POTASSIUM 4.6 mmol/L (3.5-5.1)
[2019-06-07 05:02] LABS: CREATININE 8.7 mg/dL (0.5-1.5)
--- NOTE | 2019-06-07 05:30 | NUR ---
Nursing Note spoke with Dhruv Castorena and informed him about pt's [id number]/Cr8.7. He stated "That's fine, don't worry about it"
[2019-06-07] MEDS: METOCLOPRAMIDE 10 MG TABLET PO SCH ×2 (05:34→11:30)
[2019-06-07 06:20] LABS: BAND NEUTROPHILS % (MANUAL) 1 % (0-2); BASOPHILS % (MANUAL) 2 % (0-2); EOSINOPHILS % (MANUAL) 3 % (1-6); LYMPHOCYTES % (MANUAL) 22 % (22-44); MAN.DIFF COMMENT-IMPRESSION MANUAL DIFFERENTIAL; MONOCYTES % (MANUAL) 3 % (2-9); PLATELET MORPHOLOGY COMMENT ADEQUATE; REACTIVE LYMPHOCYTES 1 % (0-0); SEGMENTED NEUTROPHILS % 68 % (40-70)
[2019-06-07 08:00] VITALS: BP 133/54
[2019-06-07] MEDS ORDERED: ASPIRIN 81MG TAB.CHEW PO SCH (09:00)
[2019-06-07] MEDS ORDERED: EPOETIN ALFA 10,000 UNIT/ML VIAL SQ SCH (09:00)
[2019-06-07] MEDS: LISINOPRIL 20 MG TABLET PO SCH (09:00)
[2019-06-07] MEDS: FERROUS SULFATE 325 MG TABLET.DR PO SCH (10:05)
[2019-06-07] MEDS: FAMOTIDINE/PF 20 MG/2 ML VIAL IV SCH (10:05)
[2019-06-07] MEDS: FOLIC ACID/VITAMIN B COMP W-C 1 MG CAP/TAB PO SCH (10:05)
[2019-06-07] MEDS: AMLODIPINE BESYLATE 5 MG TAB PO SCH (10:05)
[2019-06-07] MEDS: **HM**Cholecalciferol (Vitamin D3) (Vitamin D3) 1,000 UNIT PO SCH (10:06)
== END 2019-06-07 15:40 | disposition home or self-care (01) | DRG 674 ==
LOC: EDH 14:17 → EDHIP 14:18 → 3BH 20:09
PROVIDERS: ADMIT Family Medicine; ATTEND Family Medicine
PROC: 30233N1 Transfusion of Nonautologous Red Blood Cells into Peripheral Vein, Percutaneous Approach (ICD-10-PCS; 2019-05-29)
PROC: 0JH63XZ Insertion of Tunneled Vascular Access Device into Chest Subcutaneous Tissue and Fascia, Percutaneous Approach (ICD-10-PCS; 2019-05-31)
PROC: 5A1D70Z Performance of Urinary Filtration, Intermittent, Less than 6 Hours Per Day (ICD-10-PCS; 2019-05-31)
PROC: 02HV33Z Insertion of Infusion Device into Superior Vena Cava, Percutaneous Approach (ICD-10-PCS; 2019-05-31)
PROC: B5181ZA Fluoroscopy of Superior Vena Cava using Low Osmolar Contrast, Guidance (ICD-10-PCS; 2019-05-31)
PROC: B548ZZA Ultrasonography of Superior Vena Cava, Guidance (ICD-10-PCS; 2019-05-31)
PROC: 5A1D70Z Performance of Urinary Filtration, Intermittent, Less than 6 Hours Per Day (ICD-10-PCS; 2019-06-01)
PROC: 5A1D70Z Performance of Urinary Filtration, Intermittent, Less than 6 Hours Per Day (ICD-10-PCS; 2019-06-02)
PROC: 5A1D70Z Performance of Urinary Filtration, Intermittent, Less than 6 Hours Per Day (ICD-10-PCS; 2019-06-04)
PROC: 03170ZD Bypass Right Brachial Artery to Upper Arm Vein, Open Approach (ICD-10-PCS; principal; 2019-06-06 12:35)
DX: N17.9 Acute kidney failure, unspecified (principal); E87.2 Acidosis; E46 Unspecified protein-calorie malnutrition; I12.0 Hypertensive chronic kidney disease with stage 5 chronic kidney disease or end stage renal disease; N18.6 End stage renal disease; D64.9 Anemia, unspecified; E87.5 Hyperkalemia; E11.22 Type 2 diabetes mellitus with diabetic chronic kidney disease; E11.51 Type 2 diabetes mellitus with diabetic peripheral angiopathy without gangrene; E78.00 Pure hypercholesterolemia, unspecified; H54.62 Unqualified visual loss, left eye, normal vision right eye; I45.10 Unspecified right bundle-branch block; Z83.3 Family history of diabetes mellitus; Z89.432 Acquired absence of left foot; Z91.15 Patient's noncompliance with renal dialysis; Z91.19 Patient's noncompliance with other medical treatment and regimen; Z99.2 Dependence on renal dialysis; Z68.25 Body mass index [BMI] 25.0-25.9, adult
CPT/HCPCS: 36415; 36430; 36558; 36600; 71045; 76770; 77001; 80048; 80053; 80061; 80305; 81001; 82040; 82270; 82565; 82728; 82803; 82948; 83036; 83540; 83550; 83605; 83690; 83735; 84100; 84443; 84520; 84550; 85014; 85018; 85025; 85027; 85610; 85730; 86701; 86704; 86706; 86850; 86900; 86901; 86922; 87340; 87390; 87520; 90935; 93005; 93970; C1750; G0378; J0690; J0885; J1644; J2001; J2250; J2704; J2765; J2795; J3010; J3490; J7030; P9016

== ENCOUNTER 2019-12-15 13:03 | Inpatient (IN) | payer MEDICARE ==
[~2019-12-15] VITALS: Ht 162.6 cm; Wt 70.9 kg
[~2019-12-15 13:03] MED LIST: AMLO-258 PO; CHOL100040 PO; CLOP75TA32 PO; FERR-82 PO; LISI-613 PO; VIT-7 PO
[2019-12-15] MEDS ORDERED: HYDROCODONE/ACETAMINOPHEN 10/325 MG TAB ONE (13:36)
[2019-12-15] MEDS ORDERED: ONDANSETRON HCL 4 MG/2 ML VIAL ONE (14:07)
[2019-12-15] MEDS ORDERED: MORPHINE SULFATE 4 MG/1ML SYG ONE (14:07)
[2019-12-15 14:14] LABS: BASOPHILS % (AUTO) 0.5 % (0.0-5.0); EOSINOPHILS % (AUTO) 1.3 % (0.0-8.0); HEMATOCRIT 30.2 % (42-54); LYMPHOCYTES % (AUTO) 16.1 % (21.0-51.0); MEAN CORPUSCULAR HEMOGLOBIN 31.9 pg (27.0-33.0); MEAN CORPUSCULAR HGB CONC 33.4 g/dL (32.0-36.0); MEAN CORPUSCULAR VOLUME 95.3 fL (79-99); MONOCYTES % (AUTO) 6.4 % (3.0-13.0); NEUTROPHILS % (AUTO) 75.2 % (40.0-77.0); PLATELET COUNT (AUTO) 194 K/uL (130-400); RED BLOOD CELL COUNT(AUTO) 3.17 MIL/uL (4.50-6.20); RED CELL DISTRIBUTION WIDTH 13.9 % (11.0-15.5); WHITE BLOOD COUNT (AUTO) 6.2 K/uL (4.8-10.8)
[2019-12-15 14:31] LABS: POTASSIUM 5.2 mmol/L (3.5-5.1)
[2019-12-15 14:33] LABS: INR 0.94 (0.85-1.15); PARTIAL THROMBOPLASTIN TIME 25.7 SEC (26.3-35.5); PROTHROMBIN TIME 10.2 SEC (9.6-11.6)
[2019-12-15 14:41] LABS: CREATININE 8.3 mg/dL (0.5-1.5)
[2019-12-15] MEDS ORDERED: ONDANSETRON HCL 4 MG/2 ML VIAL IVP PRN ×2 (15:00→16:15)
[2019-12-15] MEDS ORDERED: GLUCAGON 1MG KIT 1 MG ML IM PRN (16:15)
[2019-12-15] MEDS ORDERED: DEXTROSE 50%-WATER 50 ML DISP.SYRIN IV PRN (16:15)
[2019-12-15] MEDS: INSULIN HUMULIN R 100 UNIT/ML 3ML SQ SCH ×2 (16:30→21:36)
[2019-12-15 16:58] VITALS: BP 141/77
[2019-12-15] MEDS ORDERED: CHOL500051 PO (18:28)
[2019-12-15] MEDS ORDERED: FOLI1TAB85 PO (18:28)
[2019-12-15] MEDS ORDERED: SEVE800T27 PO (18:28)
[2019-12-15] MEDS ORDERED: LISI-613 PO (18:28)
[2019-12-15] MEDS ORDERED: AMLO-258 PO (18:28)
[2019-12-15 19:46] VITALS: BP 126/73
[2019-12-15] MEDS: HYDROMORPHONE 1 MG/1 ML AMP IVP PRN (21:25)
[2019-12-15] MEDS: METOPROLOL TARTRATE 25 MG TAB PO SCH (21:26)
[2019-12-15 23:40] VITALS: BP 145/74
[2019-12-16] MEDS: HYDROMORPHONE 1 MG/1 ML AMP IVP PRN ×2 (01:56→12:18)
[2019-12-16 03:58] VITALS: BP 145/72
[2019-12-16 04:30] LABS: BASOPHILS % (AUTO) 0.3 % (0.0-5.0); EOSINOPHILS % (AUTO) 0.2 % (0.0-8.0); HEMATOCRIT 32.4 % (42-54); LYMPHOCYTES % (AUTO) 15.6 % (21.0-51.0); MEAN CORPUSCULAR HEMOGLOBIN 31.5 pg (27.0-33.0); MEAN CORPUSCULAR HGB CONC 32.7 g/dL (32.0-36.0); MEAN CORPUSCULAR VOLUME 96.1 fL (79-99); MONOCYTES % (AUTO) 10.2 % (3.0-13.0); PLATELET COUNT (AUTO) 199 K/uL (130-400); RED BLOOD CELL COUNT(AUTO) 3.37 MIL/uL (4.50-6.20); RED CELL DISTRIBUTION WIDTH 14.2 % (11.0-15.5); WHITE BLOOD COUNT (AUTO) 10.3 K/uL (4.8-10.8)
[2019-12-16 05:14] LABS: CREATININE 9.1 mg/dL (0.5-1.5); POTASSIUM 6.3 mmol/L (3.5-5.1)
--- NOTE | 2019-12-16 05:36 | NUR ---
SPOKE WITH DIALYSIS NURSE, PATIENT WITH ELEVATED POTASSIUM LEVEL. STATES SHE WILL BE IN TO DIALYZE PATIENT. PATIENT SIGNED CONSENT FOR DIALYSIS.
--- NOTE | 2019-12-16 06:35 | NUR ---
SPOKE WITH DR. SABA CORTEZ REGARDING POTASSIUM LEVEL OF 6.3. INSTRUCTED TO NOTIFY DIALYSIS NURSE. INFORMED HIM I ALREADY CONTACTED DIALYSIS NURSE TO DIALYZE PATIENT THIS MORNING.
[2019-12-16] MEDS: INSULIN HUMULIN R 100 UNIT/ML 3ML SQ SCH ×4 (06:37→21:00)
[2019-12-16 07:55] VITALS: BP 152/75
[2019-12-16 08:42] LABS: ALBUMIN 3.7 g/dL (3.5-5.0); BILIRUBIN,DIRECT 0.1 mg/dL (0.0-0.3); BILIRUBIN,TOTAL 0.4 mg/dL (0.2-1.0); TOTAL PROTEIN, SERUM 7.7 g/dL (6.0-8.3)
[2019-12-16] MEDS: METOPROLOL TARTRATE 25 MG TAB PO SCH ×2 (09:00→20:42)
[2019-12-16] MEDS: ENOXAPARIN SODIUM 30 MG/0.3 ML SQ SCH (09:52)
[2019-12-16] MEDS: FAMOTIDINE/PF 20 MG/2 ML VIAL IV SCH (09:52)
[2019-12-16] MEDS: LISINOPRIL 20 MG TABLET PO SCH (09:58)
[2019-12-16] MEDS ORDERED: MIDAZOLAM HCL 1 MG/ML 2ML VIAL ONE (10:24)
[2019-12-16] MEDS ORDERED: DEXAMETHASONE SOD PHOSPHATE 10MG/ML 1ML VIAL ONE (10:24)
[2019-12-16] MEDS ORDERED: LIDOCAINE PF 2% 5ML ABBOJECT ONE (10:24)
[2019-12-16] MEDS ORDERED: ONDANSETRON HCL 4 MG/2 ML VIAL ONE (10:24)
[2019-12-16] MEDS ORDERED: GLYCOPYRROLATE 1 MG/5 ML SYRINGE ONE (10:24)
[2019-12-16] MEDS ORDERED: ROCURONIUM 10MG/1ML SYR 10 MG/ML ML ONE (10:25)
[2019-12-16] MEDS ORDERED: FENTANYL CITRATE PF 50 MCG/1 ML 2ML VIAL ONE (10:25)
[2019-12-16] MEDS ORDERED: PROPOFOL 10 MG/ML 20ML VIAL IV ONE (10:25)
[2019-12-16] MEDS ORDERED: NEOSTIGMINE 5MG/5ML SYR IV ONE (10:25)
[2019-12-16] MEDS ORDERED: KETAMINE 50MG/ML SYRINGE 50 MG/ML DISP.SYRIN IV ONE (10:32)
[2019-12-16 11:23] VITALS: BP 128/73
[2019-12-16] MEDS: SEVELAMER HCL 800 MG TABLET PO SCH ×2 (11:42→18:44)
--- NOTE | 2019-12-16 14:34 | NUR ---
CONSULTED DR SINHA BECAUSE PT STATED THAT HE IS HIS INSIDE BARREL LATHE OPERATOR. DR SINHA JUST CALLED BACK. AWARE OF CONSULT. PENDING TO COME AND SEE PT. HE'S NOT SURE IF HIS GOING TO SEE HIM TODAY OR TOMORROW MORNING.
[2019-12-16 16:50] VITALS: BP 130/72
[2019-12-16 20:18] VITALS: BP 160/71
[2019-12-16 23:15] VITALS: BP 143/79
[2019-12-17] VITALS (28 sets, daily range): BP systolic 91–156; BP diastolic 51–94
[2019-12-17] MEDS: INSULIN HUMULIN R 100 UNIT/ML 3ML SQ SCH ×4 (05:31→20:52)
[2019-12-17 05:39] LABS: HEMATOCRIT 31.3 % (42-54); MEAN CORPUSCULAR HEMOGLOBIN 31.3 pg (27.0-33.0); MEAN CORPUSCULAR HGB CONC 32.3 g/dL (32.0-36.0); MEAN CORPUSCULAR VOLUME 96.9 fL (79-99); PLATELET COUNT (AUTO) 188 K/uL (130-400); RED BLOOD CELL COUNT(AUTO) 3.23 MIL/uL (4.50-6.20); WHITE BLOOD COUNT (AUTO) 9.7 K/uL (4.8-10.8)
[2019-12-17 05:48] LABS: BAND NEUTROPHILS % (MANUAL) 4 % (0-2); LYMPHOCYTES % (MANUAL) 18 % (22-44); MONOCYTES % (MANUAL) 10 % (2-9); SEGMENTED NEUTROPHILS % 68 % (40-70)
[2019-12-17 05:49] LABS: MAN.DIFF COMMENT-IMPRESSION MANUAL DIFFERENTIAL; PLATELET MORPHOLOGY COMMENT ADEQUATE
[2019-12-17 05:56] LABS: CREATININE 7.1 mg/dL (0.5-1.5); POTASSIUM 4.9 mmol/L (3.5-5.1)
[2019-12-17] MEDS: SEVELAMER HCL 800 MG TABLET PO SCH ×3 (07:52→18:03)
[2019-12-17] MEDS: ENOXAPARIN SODIUM 30 MG/0.3 ML SQ SCH (07:54)
[2019-12-17 08:10] LABS: HEPATITIS Bs ANTIGEN SCREEN P Negative (Negative)
--- NOTE | 2019-12-17 09:11 | NUR ---
dr knapp here to see patient and he stated he is going to clear the patient low risk for surgery; i have called dr Lakhani to inform him and left message; pending call back. pt cont. to be npo
--- NOTE | 2019-12-17 09:19 | NUR ---
dr cheng gave orderes for surgery today.
[2019-12-17] MEDS: LISINOPRIL 20 MG TABLET PO SCH (09:42)
[2019-12-17] MEDS: METOPROLOL TARTRATE 25 MG TAB PO SCH ×2 (09:42→20:14)
[2019-12-17] MEDS: FAMOTIDINE/PF 20 MG/2 ML VIAL IV SCH (09:42)
[2019-12-17] MEDS: HYDROMORPHONE 1 MG/1 ML AMP IVP PRN ×3 (09:43→20:14)
[2019-12-17] MEDS ORDERED: SODIUM CHLORIDE 0.9% 1000ML 1,000 ML IV ONE (11:51)
[2019-12-17] MEDS ORDERED: LIDOCAINE PF 2% 5ML ABBOJECT ONE (12:02)
[2019-12-17] MEDS ORDERED: ROCURONIUM 10MG/1ML SYR 10 MG/ML ML ONE (12:02)
[2019-12-17] MEDS ORDERED: PROPOFOL 10 MG/ML 20ML VIAL IV ONE (12:02)
[2019-12-17] MEDS ORDERED: FENTANYL CITRATE PF 50 MCG/1 ML 2ML VIAL ONE (12:04)
[2019-12-17] MEDS ORDERED: KETAMINE 50MG/ML SYRINGE 50 MG/ML DISP.SYRIN IV ONE (12:06)
[2019-12-17] MEDS ORDERED: GLYCOPYRROLATE 1 MG/5 ML SYRINGE ONE (12:08)
[2019-12-17] MEDS ORDERED: CEFAZOLIN SODIUM 1 GM VIAL ONE (12:23)
[2019-12-17] MEDS ORDERED: NEOSTIGMINE 5MG/5ML SYR IV ONE (13:05)
[2019-12-17] MEDS ORDERED: ROPIVACAINE 0.5% 5MG/ML 30ML IJ ONE (13:07)
[2019-12-17] MEDS ORDERED: ONDANSETRON HCL 4 MG/2 ML VIAL ONE (13:14)
[2019-12-17] MEDS ORDERED: PHENYLEPHRINE HCL 10 MG/ML 1ML VIAL IV ONE (13:14)
--- NOTE | 2019-12-17 14:23 | NUR ---
RD NOTIFICATION Pt admitted s/p fall with Left Hip Fracture, pending surgery at time of screen. Pt tolerating 60gm CCD with report of GI distress, PO intake at 100%. Recommend Renal Dialysis Diet order. RD to follow up for nutrition education assessment. Please notify as additional nutrition concerns arise. Thank you. Addendum: 12/17/19 at [address] Amended: Links added.
--- NOTE | 2019-12-17 15:25 | NUR ---
CM NOTE/ATTEMPTED IA ATTEMPTED IA, PATIENT IN SURGERY, CM TO FOLLOW UP.
[2019-12-18] VITALS (7 sets, daily range): BP systolic 93–149; BP diastolic 62–78
[2019-12-18] MEDS: HYDROMORPHONE 1 MG/1 ML AMP IVP PRN ×4 (01:35→21:04)
[2019-12-18 05:21] LABS: BASOPHILS % (AUTO) 0.3 % (0.0-5.0); EOSINOPHILS % (AUTO) 0.1 % (0.0-8.0); HEMATOCRIT 28.5 % (42-54); LYMPHOCYTES % (AUTO) 11.1 % (21.0-51.0); MEAN CORPUSCULAR HEMOGLOBIN 31.8 pg (27.0-33.0); MEAN CORPUSCULAR HGB CONC 32.6 g/dL (32.0-36.0); MEAN CORPUSCULAR VOLUME 97.6 fL (79-99); MONOCYTES % (AUTO) 12.4 % (3.0-13.0); NEUTROPHILS % (AUTO) 75.5 % (40.0-77.0); PLATELET COUNT (AUTO) 199 K/uL (130-400); RED BLOOD CELL COUNT(AUTO) 2.92 MIL/uL (4.50-6.20); RED CELL DISTRIBUTION WIDTH 14.2 % (11.0-15.5); WHITE BLOOD COUNT (AUTO) 10.8 K/uL (4.8-10.8)
[2019-12-18 05:44] LABS: PHOSPHORUS 8.7 mg/dL (2.5-4.9); POTASSIUM 5.9 mmol/L (3.5-5.1)
[2019-12-18 06:29] LABS: CREATININE 9.4 mg/dL (0.5-1.5)
[2019-12-18] MEDS: INSULIN HUMULIN R 100 UNIT/ML 3ML SQ SCH ×4 (06:42→21:00)
[2019-12-18] MEDS: SEVELAMER HCL 800 MG TABLET PO SCH ×3 (08:00→16:48)
[2019-12-18] MEDS: METOPROLOL TARTRATE 25 MG TAB PO SCH ×3 (09:00→21:03)
[2019-12-18] MEDS: LISINOPRIL 20 MG TABLET PO SCH ×2 (09:00→11:36)
[2019-12-18] MEDS: FAMOTIDINE/PF 20 MG/2 ML VIAL IV SCH (11:34)
[2019-12-18] MEDS: ENOXAPARIN SODIUM 30 MG/0.3 ML SQ SCH (11:35)
--- NOTE | 2019-12-18 16:26 | NUR ---
D/C PLAN CM spoke to pt regarding d/c planning. Pt lives with spouse and adult children. Denies having home health. Reports his son is his provider. Has about 40 hrs/week of provider services. Pt also attends o/p HD treatments. Pt has front wheel wk, w/c, shower chair, and bedside commode. States he can borrow wk without wheels from his parents. CM spoke to pt about possible rehab placement. States he has assistance at home and would like to return home with home health. CM to f/u with final d/c plan. Pt is pending PT eval. Addendum: 12/18/19 at 1630 by MICHAEL SOSA Amended: Links added.
[2019-12-18] MEDS: CEFTRIAXONE SODIUM 1 GM IVP SCH (16:49)
[2019-12-19] MEDS: HYDROMORPHONE 1 MG/1 ML AMP IVP PRN ×2 (03:45→21:14)
[2019-12-19 04:01] VITALS: BP 149/77
[2019-12-19 06:17] LABS: BASOPHILS % (AUTO) 0.2 % (0.0-5.0); EOSINOPHILS % (AUTO) 0.4 % (0.0-8.0); LYMPHOCYTES % (AUTO) 12.8 % (21.0-51.0); MEAN CORPUSCULAR HEMOGLOBIN 30.8 pg (27.0-33.0); MEAN CORPUSCULAR HGB CONC 32.1 g/dL (32.0-36.0); MONOCYTES % (AUTO) 12.4 % (3.0-13.0); NEUTROPHILS % (AUTO) 73.9 % (40.0-77.0); PLATELET COUNT (AUTO) 169 K/uL (130-400); RED CELL DISTRIBUTION WIDTH 13.6 % (11.0-15.5); WHITE BLOOD COUNT (AUTO) 8.9 K/uL (4.8-10.8)
[2019-12-19 06:25] LABS: CREATININE 6.8 mg/dL (0.5-1.5); POTASSIUM 4.5 mmol/L (3.5-5.1)
[2019-12-19] MEDS: INSULIN HUMULIN R 100 UNIT/ML 3ML SQ SCH ×4 (06:26→21:00)
[2019-12-19 07:30] VITALS: BP 136/69
[2019-12-19] MEDS ORDERED: VANCOMYCIN PROTOCOL PER PHARMACY IV SCH (08:15)
[2019-12-19] MEDS ORDERED: VANCOMYCIN 1GM+NS 250ML 250 ML IV SCH (08:15)
[2019-12-19] MEDS: SEVELAMER HCL 800 MG TABLET PO SCH ×3 (08:48→16:36)
[2019-12-19] MEDS: METOPROLOL TARTRATE 25 MG TAB PO SCH ×2 (08:49→21:14)
[2019-12-19] MEDS: FAMOTIDINE/PF 20 MG/2 ML VIAL IV SCH (08:49)
[2019-12-19] MEDS: LISINOPRIL 20 MG TABLET PO SCH (08:49)
[2019-12-19] MEDS: ENOXAPARIN SODIUM 30 MG/0.3 ML SQ SCH (08:50)
[2019-12-19 11:00] VITALS: BP 122/66
[2019-12-19] MEDS ORDERED: COMPOUND IV REFRIGERATED 1 EACH IVSOLN MISC PRN (14:30)
--- NOTE | 2019-12-19 15:22 | NUR ---
CONSULT DR. HARRINGTON PRESENT AT THIS TIME. WOUND CARE PERFORMED BY DR. HARRINGTON TO LEFT LOWER EXTREMITY. HYDRAFERA BLUE DRESSING APPLIED TO AMPUTATION SITE. NO NEW ORDERS FOR DRESSING CHANGES. SPECIMEN COLLECTED BY DR. HARRINGTON.
[2019-12-19 16:00] VITALS: BP 129/73
[2019-12-19] MEDS: CEFTRIAXONE SODIUM 1 GM IVP SCH (16:37)
[2019-12-19 20:00] VITALS: BP 146/74
[2019-12-19] MEDS: ZOSYN 3.375GM+NS 50ML 50 ML IV SCH (21:13)
[2019-12-20] VITALS (7 sets, daily range): BP systolic 128–152; BP diastolic 66–74
[2019-12-20] MEDS: HYDROMORPHONE 1 MG/1 ML AMP IVP PRN ×4 (03:57→18:35)
[2019-12-20 06:05] LABS: BASOPHILS % (AUTO) 0.4 % (0.0-5.0); EOSINOPHILS % (AUTO) 1.2 % (0.0-8.0); HEMATOCRIT 21.7 % (42-54); LYMPHOCYTES % (AUTO) 9.9 % (21.0-51.0); MEAN CORPUSCULAR HEMOGLOBIN 31.9 pg (27.0-33.0); MEAN CORPUSCULAR HGB CONC 33.2 g/dL (32.0-36.0); MONOCYTES % (AUTO) 12.6 % (3.0-13.0); NEUTROPHILS % (AUTO) 75.7 % (40.0-77.0); PLATELET COUNT (AUTO) 171 K/uL (130-400); RED BLOOD CELL COUNT(AUTO) 2.26 MIL/uL (4.50-6.20); RED CELL DISTRIBUTION WIDTH 13.3 % (11.0-15.5); WHITE BLOOD COUNT (AUTO) 8.1 K/uL (4.8-10.8)
[2019-12-20 06:28] LABS: MAGNESIUM 2.2 mg/dL (1.80-2.40); POTASSIUM 4.7 mmol/L (3.5-5.1)
[2019-12-20 06:35] LABS: CREATININE 8.9 mg/dL (0.5-1.5)
[2019-12-20] MEDS: INSULIN HUMULIN R 100 UNIT/ML 3ML SQ SCH ×4 (07:30→20:08)
[2019-12-20] MEDS: SEVELAMER HCL 800 MG TABLET PO SCH ×3 (08:00→16:40)
[2019-12-20 09:09] LABS: % IRON SATURATION 11.7 % (30-44)
[2019-12-20] MEDS: ENOXAPARIN SODIUM 30 MG/0.3 ML SQ SCH (09:19)
[2019-12-20] MEDS: FAMOTIDINE/PF 20 MG/2 ML VIAL IV SCH (09:19)
[2019-12-20] MEDS: ZOSYN 3.375GM+NS 50ML 50 ML IV SCH ×2 (09:19→20:07)
[2019-12-20] MEDS: METOPROLOL TARTRATE 25 MG TAB PO SCH ×2 (09:19→20:07)
[2019-12-20] MEDS: LISINOPRIL 20 MG TABLET PO SCH (09:19)
--- NOTE | 2019-12-20 12:16 | NUR ---
MD REHAN PEDRO SKILL LABOR ROUNDED WITH PATIENT. POC DISCUSSED. LEFT FOOT CT NEEDS CORRELATIONS WITH MRI, DUE TO PT'S RENAL STATUS MRI WILL BE OBTAINED TOMORROW BEFORE DIALYSIS. MAYELA WILL ENTER THE ORDER.
[2019-12-20] MEDS: LACTULOSE 20 GM/30 ML UDCUP PO PRN (13:22)
[2019-12-21] MEDS: LACTULOSE 20 GM/30 ML UDCUP PO PRN (00:09)
[2019-12-21] MEDS: HYDROMORPHONE 1 MG/1 ML AMP IVP PRN ×3 (02:19→11:32)
[2019-12-21 04:00] VITALS: BP 141/74
[2019-12-21 06:00] LABS: CREATININE 10.4 mg/dL (0.5-1.5)
[2019-12-21] MEDS: INSULIN HUMULIN R 100 UNIT/ML 3ML SQ SCH ×3 (06:38→15:51)
[2019-12-21 07:34] VITALS: BP 144/71
[2019-12-21] MEDS: SEVELAMER HCL 800 MG TABLET PO SCH ×3 (08:48→17:43)
[2019-12-21] MEDS: ZOSYN 3.375GM+NS 50ML 50 ML IV SCH (08:49)
[2019-12-21] MEDS: FAMOTIDINE/PF 20 MG/2 ML VIAL IV SCH (08:49)
[2019-12-21] MEDS: ENOXAPARIN SODIUM 30 MG/0.3 ML SQ SCH (08:57)
[2019-12-21] MEDS: METOPROLOL TARTRATE 25 MG TAB PO SCH ×2 (09:00→20:52)
[2019-12-21] MEDS: LISINOPRIL 20 MG TABLET PO SCH (09:00)
[2019-12-21 11:07] VITALS: BP 130/58
[2019-12-21] MEDS ORDERED: ACETAMINOPHEN-CODEINE 300/30MG TAB PO PRN ×2 (13:15)
[2019-12-21] MEDS ORDERED: LUBIPROSTONE 24 MCG CAP PO PRN (13:15)
--- NOTE | 2019-12-21 14:00 | NUR ---
CM NOTE/[facility] REFERRAL NEW ORDER FOR LT[facility]. MEET WITH PATIENT IN ROOM. JOHN FILLED OUT FOR [facility]. JENNIFER FROM [facility] MADE AWARE, CLINICAL PACKET FAXED AND EMAILED, CONFIRMED RECEIVED. EMS SET UP, PENDING DATE/TIME. PENDING [facility] APPROVAL, PRIMARY NURSE, RYAN MEDRANO, MADE AWARE.
--- NOTE | 2019-12-21 15:17 | NUR ---
RD FOLLOW UP Pt admitted s/p Fall with Left Hip Fracture. S/p surgery. Pt tolerating 60gm CC, Dialysis diet order. Good PO intake, no report of GI distress. LBM 12/21/19. CASSY provided Nutrition Education (Dialysis, Diabetes, Heart healthy). RD to continue to monitor. Addendum: 12/21/19 at [address] Amended: Links added.
--- NOTE | 2019-12-21 15:21 | NUR ---
NUTRITION EDUCATION RD provided Dialysis, Diabetes, Heart healthy Nutrition education. RD provided reference materials and discussed nutrition recommendations. Pt engaged in discussion and verbalized understanding. RD to continue to monitor. Addendum: 12/21/19 at [address] Amended: Links added.
[2019-12-21 15:56] VITALS: BP 127/64
[2019-12-21] MEDS ORDERED: VANCOMYCIN 0.75 GM in SODIUM CHLORIDE 0.9% 250 ML IV SCH (16:00)
[2019-12-21 19:00] VITALS: BP 151/65
[2019-12-21] MEDS ORDERED: DOCUSATE SODIUM 100 MG CAP PO ONE (19:15)
--- NOTE | 2019-12-21 20:45 | NUR ---
DISCHARGE INSTRUCTIONS GIVEN TO PT. PT VERBALIZED AN UNDERSTANDING. NO DISTRESS VISUALIZED AT THIS TIME.
[2019-12-21] MEDS ORDERED: DOCUSATE SODIUM 100 MG CAP PO SCH (21:00)
--- NOTE | 2019-12-22 00:04 | NUR ---
EMS HERE TO ANALYTICAL CHEMIST PATIENT. PT EXHIBITS NO DISTRESS AT THIS TIME. IV LEFT IN PLACE FOR USE A [facility].
[2019-12-22] MEDS ORDERED: IRON SUCROSE COMPLEX 100 MG in SODIUM CHLORIDE 0.9% 50 ML IV SCH (09:00)
[2019-12-22] MEDS ORDERED: EPOETIN ALFA 10,000 UNIT/ML VIAL SQ SCH (13:00)
== END 2019-12-22 00:04 | DRG 463 ==
LOC: EDH 13:03 → EDHIP 14:49 → 3BH 16:34
PROVIDERS: ADMIT Internal Medicine; ATTEND Internal Medicine
PROC: 5A1D70Z Performance of Urinary Filtration, Intermittent, Less than 6 Hours Per Day (ICD-10-PCS; 2019-12-16)
PROC: 3E0T3BZ Introduction of Anesthetic Agent into Peripheral Nerves and Plexi, Percutaneous Approach (ICD-10-PCS; 2019-12-17)
PROC: 0QH736Z Insertion of Intramedullary Internal Fixation Device into Left Upper Femur, Percutaneous Approach (ICD-10-PCS; principal; 2019-12-17 12:03)
PROC: 5A1D70Z Performance of Urinary Filtration, Intermittent, Less than 6 Hours Per Day (ICD-10-PCS; 2019-12-18)
PROC: 0JBR0ZZ Excision of Left Foot Subcutaneous Tissue and Fascia, Open Approach (ICD-10-PCS; 2019-12-19)
PROC: 0HBRXZZ Excision of Toe Nail, External Approach (ICD-10-PCS; 2019-12-19)
PROC: 0HBRXZZ Excision of Toe Nail, External Approach (ICD-10-PCS; 2019-12-19)
PROC: 0HBRXZZ Excision of Toe Nail, External Approach (ICD-10-PCS; 2019-12-19)
PROC: 0HBRXZZ Excision of Toe Nail, External Approach (ICD-10-PCS; 2019-12-19)
PROC: 0HBRXZZ Excision of Toe Nail, External Approach (ICD-10-PCS; 2019-12-19)
PROC: 5A1D70Z Performance of Urinary Filtration, Intermittent, Less than 6 Hours Per Day (ICD-10-PCS; 2019-12-21)
DX: T87.44 Infection of amputation stump, left lower extremity (principal); S72.142A Displaced intertrochanteric fracture of left femur, initial encounter for closed fracture; N18.6 End stage renal disease; I12.0 Hypertensive chronic kidney disease with stage 5 chronic kidney disease or end stage renal disease; M86.8X7 Other osteomyelitis, ankle and foot; Y83.5 Amputation of limb(s) as the cause of abnormal reaction of the patient, or of later complication, without mention of misadventure at the time of the procedure; Z99.2 Dependence on renal dialysis; E11.22 Type 2 diabetes mellitus with diabetic chronic kidney disease; B96.5 Pseudomonas (aeruginosa) (mallei) (pseudomallei) as the cause of diseases classified elsewhere; D64.9 Anemia, unspecified; E11.51 Type 2 diabetes mellitus with diabetic peripheral angiopathy without gangrene; E11.621 Type 2 diabetes mellitus with foot ulcer; E11.69 Type 2 diabetes mellitus with other specified complication; E78.00 Pure hypercholesterolemia, unspecified; E78.5 Hyperlipidemia, unspecified; E87.5 Hyperkalemia; H54.62 Unqualified visual loss, left eye, normal vision right eye; K59.00 Constipation, unspecified; L97.529 Non-pressure chronic ulcer of other part of left foot with unspecified severity; M85.80 Other specified disorders of bone density and structure, unspecified site; W01.0XXA Fall on same level from slipping, tripping and stumbling without subsequent striking against object, initial encounter; B35.1 Tinea unguium; L60.2 Onychogryphosis; I08.3 Combined rheumatic disorders of mitral, aortic and tricuspid valves; Y93.89 Activity, other specified; Y99.8 Other external cause status; Y92.009 Unspecified place in unspecified non-institutional (private) residence as the place of occurrence of the external cause; Z83.3 Family history of diabetes mellitus; Z82.5 Family history of asthma and other chronic lower respiratory diseases; Z82.49 Family history of ischemic heart disease and other diseases of the circulatory system
CPT/HCPCS: 36415; 71045; 72192; 73502; 73503; 73552; 73700; 73718; 80048; 80076; 82948; 83540; 83550; 83735; 84100; 84145; 84484; 85025; 85610; 85651; 85730; 86704; 86706; 87040; 87070; 87076; 87077; 87186; 87340; 87520; 90935; 93005; 93306; 93356; 93926; 97039; G0378; J0690; J0696; J1100; J1170; J1650; J1756; J1815; J2001; J2250; J2270; J2370; J2405; J2543; J2704; J2710; J2795; J3010; J3370; J3490; J7030; J7050

== ENCOUNTER 2020-01-31 15:04 | Inpatient (IN) | payer MEDICARE ==
[~2020-01-31] VITALS: Ht 160 cm; Wt 70.8 kg
[~2020-01-31 15:04] MED LIST changes: +CHOL500051 PO; +FOLI1TAB85 PO; +SEVE800T27 PO
[2020-01-31 17:01] LABS: BASOPHILS % (AUTO) 0.5 % (0.0-5.0); EOSINOPHILS % (AUTO) 2.1 % (0.0-8.0); HEMATOCRIT 31.8 % (42-54); LYMPHOCYTES % (AUTO) 17.9 % (21.0-51.0); MEAN CORPUSCULAR HEMOGLOBIN 31.5 pg (27.0-33.0); MEAN CORPUSCULAR HGB CONC 32.7 g/dL (32.0-36.0); MEAN CORPUSCULAR VOLUME 96.4 fL (79-99); MONOCYTES % (AUTO) 9.9 % (3.0-13.0); NEUTROPHILS % (AUTO) 69.3 % (40.0-77.0); PLATELET COUNT (AUTO) 233 K/uL (130-400); RED CELL DISTRIBUTION WIDTH 14.6 % (11.0-15.5); WHITE BLOOD COUNT (AUTO) 7.3 K/uL (4.8-10.8)
[2020-01-31 17:11] LABS: CREATININE 7.8 mg/dL (0.5-1.5); POTASSIUM 4.6 mmol/L (3.5-5.1)
[2020-01-31] MEDS ORDERED: ZOSYN 3.375GM+NS 50ML 50 ML IV ONE (17:31)
[2020-01-31] MEDS ORDERED: LACTULOSE 20 GM/30 ML UDCUP PO PRN (18:45)
[2020-01-31] MEDS ORDERED: ONDANSETRON HCL 4 MG/2 ML VIAL IV PRN (18:45)
[2020-01-31] MEDS ORDERED: ACETAMINOPHEN 325 MG TAB PO PRN ×2 (18:45)
[2020-01-31] MEDS ORDERED: HYDRALAZINE HCL 20 MG/ML VIAL IV PRN (19:30)
[2020-01-31] MEDS ORDERED: MORPHINE SULFATE 4 MG/1ML SYG ONE (19:53)
[2020-01-31 20:55] VITALS: BP 117/66
[2020-01-31] MEDS: INSULIN HUMULIN R 100 UNIT/ML 3ML SQ SCH (21:00)
[2020-01-31] MEDS: HEPARIN SODIUM 5000UNIT/ML 1ML VIAL SQ SCH (22:17)
[2020-01-31] MEDS ORDERED: CLINDAMYCIN HCL 150 MG CAP ONE (23:41)
[2020-02-01] VITALS (7 sets, daily range): BP systolic 130–159; BP diastolic 63–72
[2020-02-01] MEDS: ZOSYN 3.375GM+NS 50ML 50 ML IV SCH ×2 (04:24→17:54)
[2020-02-01 05:31] LABS: BASOPHILS % (AUTO) 0.6 % (0.0-5.0); EOSINOPHILS % (AUTO) 2.2 % (0.0-8.0); HEMATOCRIT 27.3 % (42-54); LYMPHOCYTES % (AUTO) 18.5 % (21.0-51.0); MEAN CORPUSCULAR HEMOGLOBIN 31.3 pg (27.0-33.0); MEAN CORPUSCULAR VOLUME 94.8 fL (79-99); MONOCYTES % (AUTO) 10.5 % (3.0-13.0); NEUTROPHILS % (AUTO) 67.7 % (40.0-77.0); PLATELET COUNT (AUTO) 218 K/uL (130-400); RED BLOOD CELL COUNT(AUTO) 2.88 MIL/uL (4.50-6.20); RED CELL DISTRIBUTION WIDTH 14.3 % (11.0-15.5); WHITE BLOOD COUNT (AUTO) 6.3 K/uL (4.8-10.8)
[2020-02-01 06:08] LABS: POTASSIUM 4.8 mmol/L (3.5-5.1)
[2020-02-01 06:11] LABS: CREATININE 8.6 mg/dL (0.5-1.5)
[2020-02-01] MEDS: INSULIN HUMULIN R 100 UNIT/ML 3ML SQ SCH ×4 (07:11→20:25)
[2020-02-01] MEDS: HEPARIN SODIUM 5000UNIT/ML 1ML VIAL SQ SCH ×2 (07:29→18:05)
[2020-02-01] MEDS: FAMOTIDINE 20MG TAB 20 MG TAB PO SCH (09:08)
[2020-02-01] MEDS ORDERED: HYDR-4153 PO (18:46)
[2020-02-01] MEDS ORDERED: METO25TA6 PO (18:46)
[2020-02-01] MEDS: METOPROLOL TARTRATE 25 MG TAB PO SCH (20:52)
[2020-02-01] MEDS: HYDRALAZINE HCL 25 MG TABLET PO SCH (20:52)
--- NOTE | 2020-02-01 21:26 | NUR ---
paged doctor gaitan on his pager and left a message about consult for possible arterial steal syndrome. pending call back.
--- NOTE | 2020-02-02 02:14 | NUR ---
wound care conducted on patient's right index finger. picture taken and placed on the chart.
[2020-02-02] MEDS: MORPHINE SULFATE 2 MG/ML 1ML SYG IV PRN ×2 (03:14→22:07)
[2020-02-02 03:30] VITALS: BP 139/72
[2020-02-02] MEDS: ZOSYN 3.375GM+NS 50ML 50 ML IV SCH ×2 (03:44→17:55)
[2020-02-02] MEDS: INSULIN HUMULIN R 100 UNIT/ML 3ML SQ SCH ×4 (05:12→21:00)
[2020-02-02] MEDS: HEPARIN SODIUM 5000UNIT/ML 1ML VIAL SQ SCH ×2 (05:34→18:24)
[2020-02-02] MEDS ORDERED: SEVELAMER HCL 800 MG TABLET ONE (05:38)
[2020-02-02] MEDS: SEVELAMER HCL 800 MG TABLET PO SCH ×3 (05:39→17:56)
[2020-02-02 05:42] LABS: HEMATOCRIT 27.5 % (42-54); MEAN CORPUSCULAR HEMOGLOBIN 31.2 pg (27.0-33.0); MEAN CORPUSCULAR HGB CONC 33.1 g/dL (32.0-36.0); MEAN CORPUSCULAR VOLUME 94.2 fL (79-99); PLATELET COUNT (AUTO) 180 K/uL (130-400); RED BLOOD CELL COUNT(AUTO) 2.92 MIL/uL (4.50-6.20); RED CELL DISTRIBUTION WIDTH 14.4 % (11.0-15.5); WHITE BLOOD COUNT (AUTO) 5.7 K/uL (4.8-10.8)
[2020-02-02 05:50] LABS: PHOSPHORUS 5.1 mg/dL (2.5-4.9); POTASSIUM 4.4 mmol/L (3.5-5.1)
[2020-02-02 05:54] LABS: BAND NEUTROPHILS % (MANUAL) 4 % (0-2); BASOPHILS % (MANUAL) 4 % (0-2); EOSINOPHILS % (MANUAL) 4 % (1-6); LYMPHOCYTES % (MANUAL) 8 % (22-44); MAN.DIFF COMMENT-IMPRESSION MANUAL DIFFERENTIAL; MONOCYTES % (MANUAL) 8 % (2-9); PLATELET MORPHOLOGY COMMENT ADEQUATE; SEGMENTED NEUTROPHILS % 72 % (40-70)
[2020-02-02 08:00] VITALS: BP 144/63
[2020-02-02 08:13] LABS: HEPATITIS A ANTIBODY IGM Negative (Negative); HEPATITIS B CORE IGM Negative (Negative); HEPATITIS Bs ANTIGEN SCREEN P Negative (Negative)
[2020-02-02] MEDS ORDERED: NON-FORMULARY MEDICATION 1 EACH (Cholecalciferol (Vitamin D3) (Vitamin D3) 125 MCG) PO SCH (09:00)
[2020-02-02] MEDS ORDERED: NON-FORMULARY MEDICATION 1 EACH (Amlodipine Besylate 10 MG) PO SCH (09:00)
[2020-02-02] MEDS: VITAMIN D3 125 MCG PO SCH (09:00)
[2020-02-02] MEDS: METOPROLOL TARTRATE 25 MG TAB PO SCH ×2 (09:13→21:04)
[2020-02-02] MEDS: FAMOTIDINE 20MG TAB 20 MG TAB PO SCH (09:13)
[2020-02-02] MEDS: LISINOPRIL 20 MG TABLET PO SCH (09:13)
[2020-02-02] MEDS: AMLODIPINE BESYLATE 5 MG TAB PO SCH (09:14)
[2020-02-02] MEDS: HYDRALAZINE HCL 25 MG TABLET PO SCH ×2 (09:14→21:05)
[2020-02-02 11:07] VITALS: BP 158/71
--- NOTE | 2020-02-02 12:39 | NUR ---
CONSULT SPOKE TO DR BURTON, INFORMED OF CONSULT, STATES HE WILL SEE PATIENT TODAY.
[2020-02-02] MEDS: FLUCONAZOLE 100 MG TAB PO SCH (14:21)
[2020-02-02 15:20] VITALS: BP 144/67
--- NOTE | 2020-02-02 16:00 | NUR ---
IR UNABLE TO PERFORM FISTULOGRAM TODAY,RESCHEDULED FOR TOMORROW DR MICHEAL LEDESMAFIED
[2020-02-02 21:19] VITALS: BP 150/73
[2020-02-02 23:50] VITALS: BP 148/65
[2020-02-03] MEDS: MORPHINE SULFATE 2 MG/ML 1ML SYG IV PRN (02:14)
[2020-02-03 03:40] LABS: BASOPHILS % (AUTO) 0.6 % (0.0-5.0); EOSINOPHILS % (AUTO) 4.1 % (0.0-8.0); LYMPHOCYTES % (AUTO) 21.3 % (21.0-51.0); MEAN CORPUSCULAR HEMOGLOBIN 31.1 pg (27.0-33.0); MEAN CORPUSCULAR HGB CONC 32.7 g/dL (32.0-36.0); MEAN CORPUSCULAR VOLUME 95.2 fL (79-99); MONOCYTES % (AUTO) 12.7 % (3.0-13.0); NEUTROPHILS % (AUTO) 61.1 % (40.0-77.0); PLATELET COUNT (AUTO) 166 K/uL (130-400); RED BLOOD CELL COUNT(AUTO) 3.15 MIL/uL (4.50-6.20); RED CELL DISTRIBUTION WIDTH 14.2 % (11.0-15.5); WHITE BLOOD COUNT (AUTO) 4.9 K/uL (4.8-10.8)
[2020-02-03 03:51] LABS: CREATININE 7.7 mg/dL (0.5-1.5); POTASSIUM 5.4 mmol/L (3.5-5.1)
[2020-02-03 04:00] VITALS: BP 148/66
[2020-02-03] MEDS: INSULIN HUMULIN R 100 UNIT/ML 3ML SQ SCH ×4 (05:44→21:00)
[2020-02-03] MEDS: HEPARIN SODIUM 5000UNIT/ML 1ML VIAL SQ SCH ×2 (05:44→18:09)
[2020-02-03] MEDS: ZOSYN 3.375GM+NS 50ML 50 ML IV SCH ×2 (05:44→18:00)
[2020-02-03 07:37] VITALS: BP 134/72
[2020-02-03] MEDS: SEVELAMER HCL 800 MG TABLET PO SCH ×2 (08:00→18:00)
--- NOTE | 2020-02-03 08:00 | NUR ---
NPO, PENDING FISTULA GRAM RT, ARM. STATES HE OVERHEARD MD H-D WOULD BE DONE AFTER FISTULA GRAM.
[2020-02-03] MEDS: LISINOPRIL 20 MG TABLET PO SCH (09:00)
[2020-02-03] MEDS: FAMOTIDINE 20MG TAB 20 MG TAB PO SCH (09:00)
[2020-02-03] MEDS: AMLODIPINE BESYLATE 5 MG TAB PO SCH (09:00)
[2020-02-03] MEDS: HYDRALAZINE HCL 25 MG TABLET PO SCH ×2 (09:00→21:26)
[2020-02-03] MEDS: METOPROLOL TARTRATE 25 MG TAB PO SCH ×2 (09:00→21:26)
[2020-02-03] MEDS: VITAMIN D3 125 MCG PO SCH (09:00)
[2020-02-03 10:45] VITALS: BP 147/77
[2020-02-03 11:39] LABS: PARTIAL THROMBOPLASTIN TIME 26.2 SEC (26.3-35.5)
[2020-02-03 11:48] LABS: INR 0.96 (0.85-1.15); PROTHROMBIN TIME 10.4 SEC (9.6-11.6)
--- NOTE | 2020-02-03 13:32 | NUR ---
TO CANCER GENETICS ASSISTANT NOW FOR FISTULOGRAM.
[2020-02-03] MEDS ORDERED: IODIXANOL 320 MG/ML 100 ML VIAL ONE ×2 (13:35→14:28)
[2020-02-03] MEDS ORDERED: LIDOCAINE HCL 1% MDV 50ML VIAL ONE (13:36)
[2020-02-03 15:00] VITALS: BP 158/78
--- NOTE | 2020-02-03 15:00 | NUR ---
NOW STARTED ON H-D TX.
--- NOTE | 2020-02-03 16:00 | NUR ---
DR. GAN CONSULTED FOR RT' INDEX FINGER GANGRENE PER CHARGE NURSE GAVE ORDER FOR DEBRIDEMENT IN AM.
--- NOTE | 2020-02-03 16:09 | NUR ---
DISCHARGE PLANNING WITH PATIENT MET W PATIENT THIS AM ., LIVES W SPOUSE MACEY AND CHILDREN, SPOUSE TO PROVIDE TRANSPORT ON DISCHARGE HAS BEEN ON HD AT [facility] SINCE MAY 2019-DR. ANN IS TELLER VAULT- HAS PROBLEM/DISABILITY SINCE 09/26 TO LLE CELLULITS/AMPUTATIONS/ NON HEALING DIABETIC ULCER. HAS WHEELCHAIR, SHOWER CHAIR, WALKER- DOES NOT HAVE A SHOE AT THIS TIME FOR LLE. WOUND CARE DONE DOEN BY HOME HEALTH EVERY OTHER DAY WITH ORDERS FORM DR. HARRINGTON. HAS NOT BEEN CHANGED ON THIS ADMIT. PATIENT WAITING FOR FISTULOGRAM FOR POSSIBLE STEAL SYNDROME- NECROTIC FINGER DISTAL TO R AVF. DCP HOME WITH CONTINUES HOME HEALTH FOR WOUND CARE TO FOOT- WILL ATTEMPT TO GET NAME OF AGENCY [facility] TO FOLLOW, GOT ORDERS FOR JUANY TO SEE. Addendum: 02/03/20 at 1616 by JAGDISH DAILY RN CM Amended: Links added.
[2020-02-03] MEDS: FLUCONAZOLE 100 MG TAB PO SCH (17:59)
[2020-02-03 21:31] VITALS: BP 148/72
[2020-02-04] VITALS (26 sets, daily range): BP systolic 128–159; BP diastolic 53–87
[2020-02-04] MEDS: MORPHINE SULFATE 2 MG/ML 1ML SYG IV PRN ×2 (01:38→11:22)
[2020-02-04 05:05] LABS: INR 0.99 (0.85-1.15); PARTIAL THROMBOPLASTIN TIME 27.6 SEC (26.3-35.5); PROTHROMBIN TIME 10.7 SEC (9.6-11.6)
[2020-02-04 05:07] LABS: HEMATOCRIT 29.5 % (42-54); MEAN CORPUSCULAR HEMOGLOBIN 30.7 pg (27.0-33.0); MEAN CORPUSCULAR HGB CONC 32.5 g/dL (32.0-36.0); MEAN CORPUSCULAR VOLUME 94.2 fL (79-99); PLATELET COUNT (AUTO) 178 K/uL (130-400); RED BLOOD CELL COUNT(AUTO) 3.13 MIL/uL (4.50-6.20); RED CELL DISTRIBUTION WIDTH 14.1 % (11.0-15.5)
[2020-02-04 05:23] LABS: POTASSIUM 4.4 mmol/L (3.5-5.1)
[2020-02-04 05:53] LABS: EOSINOPHILS % (MANUAL) 2 % (1-6); LYMPHOCYTES % (MANUAL) 9 % (22-44); MAN.DIFF COMMENT-IMPRESSION MANUAL DIFFERENTIAL; MONOCYTES % (MANUAL) 10 % (2-9); PLATELET MORPHOLOGY COMMENT ADEQUATE; REACTIVE LYMPHOCYTES 3 % (0-0); SEGMENTED NEUTROPHILS % 76 % (40-70)
[2020-02-04] MEDS: ZOSYN 3.375GM+NS 50ML 50 ML IV SCH ×2 (06:00→17:30)
[2020-02-04] MEDS: HEPARIN SODIUM 5000UNIT/ML 1ML VIAL SQ SCH (06:02)
[2020-02-04] MEDS: INSULIN HUMULIN R 100 UNIT/ML 3ML SQ SCH ×4 (07:30→21:00)
[2020-02-04] MEDS: SEVELAMER HCL 800 MG TABLET PO SCH ×3 (08:00→17:30)
[2020-02-04] MEDS: LISINOPRIL 20 MG TABLET PO SCH (09:00)
[2020-02-04] MEDS: FAMOTIDINE 20MG TAB 20 MG TAB PO SCH (09:00)
[2020-02-04] MEDS: VITAMIN D3 125 MCG PO SCH (09:00)
[2020-02-04] MEDS ORDERED: CEFAZOLIN SODIUM 1 GM VIAL IVP PRN (11:00)
[2020-02-04] MEDS: HYDRALAZINE HCL 25 MG TABLET PO SCH ×2 (11:21→21:55)
[2020-02-04] MEDS: AMLODIPINE BESYLATE 5 MG TAB PO SCH (11:22)
[2020-02-04] MEDS: METOPROLOL TARTRATE 50 MG TAB PO SCH ×2 (11:22→21:55)
[2020-02-04] MEDS ORDERED: SUCCINYLCHOLINE 200MG/10ML SYR ONE (12:02)
[2020-02-04] MEDS ORDERED: LIDOCAINE PF 2% 5ML ABBOJECT ONE (12:02)
[2020-02-04] MEDS ORDERED: DEXAMETHASONE SOD PHOSPHATE 10MG/ML 1ML VIAL ONE (12:02)
[2020-02-04] MEDS ORDERED: MIDAZOLAM HCL 1 MG/ML 2ML VIAL ONE (12:02)
[2020-02-04] MEDS ORDERED: ROCURONIUM 10MG/1ML SYR 10 MG/ML ML ONE (12:03)
[2020-02-04] MEDS ORDERED: PROPOFOL 10 MG/ML 20ML VIAL IV ONE (12:03)
[2020-02-04] MEDS ORDERED: ONDANSETRON HCL 4 MG/2 ML VIAL ONE (12:03)
[2020-02-04] MEDS ORDERED: FENTANYL CITRATE PF 50 MCG/1 ML 2ML VIAL ONE (12:03)
[2020-02-04] MEDS ORDERED: GLYCOPYRROLATE 1 MG/5 ML SYRINGE ONE (12:03)
[2020-02-04] MEDS ORDERED: NEOSTIGMINE 5MG/5ML SYR IV ONE (12:03)
--- NOTE | 2020-02-04 12:58 | NUR ---
DR. HARRINGTON CAME TO CHANGE DRESSING AT BEDSIDE.
[2020-02-04] MEDS ORDERED: SODIUM CHLORIDE 0.9% 1000ML 1,000 ML IV ONE (13:53)
--- NOTE | 2020-02-04 16:00 | NUR ---
POST OP PT TALKING ON THE PHONE WITH FAMILY, RADIAL PULSE PRESENT WILL CONTINUE TO MONITOR
--- NOTE | 2020-02-04 16:31 | NUR ---
POST OP PT. CAME BY BED WITH PETR RN, PT IS A/AX 3 PULSE TO RADIAL RT HAND DONE WITH DOPPLER. INDEX FINGER COVERED WITH VASELINE GAUZE. WILL CONTINUE TO MONITOR PATIENT.
--- NOTE | 2020-02-04 16:45 | NUR ---
POST OP PT CONTINUES TO DO WELL AFTER PROCEDURE, COLOR TO HAD IS WARM, AND RADIAL PULSE IS PRESENT. WILL CONTINUE TO MONITOR
--- NOTE | 2020-02-04 17:00 | NUR ---
POST OP PT RESTING COMFORTABLY ON THE PHONE, NO COMPLICATIONS RT RADIAL PULSE PRESENT
[2020-02-04] MEDS: FLUCONAZOLE 100 MG TAB PO SCH (17:30)
--- NOTE | 2020-02-04 17:30 | NUR ---
POST OP PT DOING WELL, RESTING COMFORTABLY IN BED, RADIAL PULSE PRESENT TO THE RIGHT HAND WITH DOPPLER, SKIN WARM.
[2020-02-05] VITALS (12 sets, daily range): BP systolic 147–185; BP diastolic 71–90
[2020-02-05] MEDS: MORPHINE SULFATE 2 MG/ML 1ML SYG IV PRN ×3 (00:08→22:48)
[2020-02-05] MEDS: HEPARIN SODIUM 5000UNIT/ML 1ML VIAL SQ SCH ×2 (05:04→17:55)
[2020-02-05] MEDS: ZOSYN 3.375GM+NS 50ML 50 ML IV SCH ×2 (05:04→17:01)
[2020-02-05 05:44] LABS: ALBUMIN 2.4 g/dL (3.5-5.0); BILIRUBIN,TOTAL 0.4 mg/dL (0.2-1.0); CREATININE 7.3 mg/dL (0.5-1.5); POTASSIUM 5.1 mmol/L (3.5-5.1); TOTAL PROTEIN, SERUM 6.7 g/dL (6.0-8.3)
[2020-02-05] MEDS: INSULIN HUMULIN R 100 UNIT/ML 3ML SQ SCH ×4 (06:35→20:16)
--- NOTE | 2020-02-05 07:00 | NUR ---
PATIENT UPDATE Pt npo post mn, for hemodialysis access placement today. Medicated once for pain on the rt index finger and rt upper arm with morphine 2 mg iv with good results. Slept well overnight, vital signs stable.
[2020-02-05] MEDS: SEVELAMER HCL 800 MG TABLET PO SCH ×3 (08:00→17:50)
[2020-02-05] MEDS: METOPROLOL TARTRATE 50 MG TAB PO SCH ×2 (08:30→20:14)
[2020-02-05] MEDS: HYDRALAZINE HCL 25 MG TABLET PO SCH ×2 (09:00→20:11)
[2020-02-05] MEDS: VITAMIN D3 125 MCG PO SCH (09:00)
[2020-02-05] MEDS ORDERED: LIDOCAINE HCL 1% MDV 50ML VIAL ONE (09:44)
[2020-02-05] MEDS ORDERED: SODIUM BICARB 50MEQ 50ML VIAL ONE (09:44)
--- NOTE | 2020-02-05 11:10 | NUR ---
S/P PERMA-CATH PLACEMENT RECEIVED PATIENT S/P RIGHT SIDE PERMA CATH PLACEMENT , SITE CHECK PERFORMED , SITE INTACT AND DRY, ORDERS THAT CATH CAN BE ACCESS. VS B/P 178/87 P 73 T 98.0 R 16 O2 SATS 98.6 STATED PAIN SCORE 2 PAIN AT FINGER. WILL CONTINUE TO MONITOR.
--- NOTE | 2020-02-05 14:30 | NUR ---
HD PT STARTED DIALYSIS
[2020-02-05] MEDS: FAMOTIDINE 20MG TAB 20 MG TAB PO SCH (17:50)
[2020-02-05] MEDS: FLUCONAZOLE 100 MG TAB PO SCH (17:51)
[2020-02-05] MEDS: AMLODIPINE BESYLATE 5 MG TAB PO SCH (17:51)
[2020-02-05] MEDS: LISINOPRIL 20 MG TABLET PO SCH (17:51)
[2020-02-05] MEDS: TRAMADOL HCL 50 MG TABLET PO PRN (23:50)
[2020-02-06 00:03] VITALS: BP 167/82
[2020-02-06 03:44] VITALS: BP 149/79
[2020-02-06 05:45] LABS: BASOPHILS % (AUTO) 0.5 % (0.0-5.0); EOSINOPHILS % (AUTO) 3.1 % (0.0-8.0); LYMPHOCYTES % (AUTO) 19.4 % (21.0-51.0); MEAN CORPUSCULAR HEMOGLOBIN 30.7 pg (27.0-33.0); MEAN CORPUSCULAR HGB CONC 32.7 g/dL (32.0-36.0); NEUTROPHILS % (AUTO) 62.7 % (40.0-77.0); PLATELET COUNT (AUTO) 192 K/uL (130-400); RED BLOOD CELL COUNT(AUTO) 3.19 MIL/uL (4.50-6.20); RED CELL DISTRIBUTION WIDTH 13.6 % (11.0-15.5); WHITE BLOOD COUNT (AUTO) 6.4 K/uL (4.8-10.8)
[2020-02-06 05:57] LABS: CREATININE 5.6 mg/dL (0.5-1.5); POTASSIUM 4.2 mmol/L (3.5-5.1)
[2020-02-06] MEDS: HEPARIN SODIUM 5000UNIT/ML 1ML VIAL SQ SCH ×2 (06:10→20:23)
[2020-02-06] MEDS: ZOSYN 3.375GM+NS 50ML 50 ML IV SCH ×2 (06:10→17:49)
[2020-02-06] MEDS: INSULIN HUMULIN R 100 UNIT/ML 3ML SQ SCH ×4 (06:13→20:13)
[2020-02-06] MEDS: AMLODIPINE BESYLATE 5 MG TAB PO SCH (08:11)
[2020-02-06] MEDS: METOPROLOL TARTRATE 50 MG TAB PO SCH ×2 (08:11→20:18)
[2020-02-06] MEDS: FAMOTIDINE 20MG TAB 20 MG TAB PO SCH (08:11)
[2020-02-06] MEDS: SEVELAMER HCL 800 MG TABLET PO SCH ×3 (08:11→17:49)
[2020-02-06] MEDS: HYDRALAZINE HCL 25 MG TABLET PO SCH ×2 (08:12→20:19)
[2020-02-06] MEDS: LISINOPRIL 20 MG TABLET PO SCH (08:12)
[2020-02-06] MEDS: VITAMIN D3 125 MCG PO SCH (08:15)
[2020-02-06 08:31] VITALS: BP 162/73
[2020-02-06 12:18] VITALS: BP 156/74
[2020-02-06] MEDS: FLUCONAZOLE 100 MG TAB PO SCH (13:18)
[2020-02-06 15:54] VITALS: BP 155/70
--- NOTE | 2020-02-06 18:04 | NUR ---
DR. HARRINGTON CHANGED DRESSING TO THE LET FOOT.
--- NOTE | 2020-02-06 19:16 | NUR ---
CM NOTE CM spoke to pt regarding d/c planning. CM explained orders for LTAC. Pt [facility] and wants to return home. CM to follow up with MD in regards to final d/c plan.
[2020-02-06 20:00] VITALS: BP 143/67
[2020-02-06] MEDS ORDERED: HYDRALAZINE HCL 25 MG TABLET ONE (20:04)
[2020-02-06] MEDS: TRAMADOL HCL 50 MG TABLET PO PRN (22:40)
[2020-02-07] VITALS (7 sets, daily range): BP systolic 135–151; BP diastolic 64–74
[2020-02-07 05:30] LABS: BASOPHILS % (AUTO) 0.5 % (0.0-5.0); EOSINOPHILS % (AUTO) 3.1 % (0.0-8.0); HEMATOCRIT 29.5 % (42-54); LYMPHOCYTES % (AUTO) 20.5 % (21.0-51.0); MEAN CORPUSCULAR HEMOGLOBIN 31.3 pg (27.0-33.0); MEAN CORPUSCULAR HGB CONC 32.9 g/dL (32.0-36.0); MEAN CORPUSCULAR VOLUME 95.2 fL (79-99); MONOCYTES % (AUTO) 11.9 % (3.0-13.0); NEUTROPHILS % (AUTO) 63.6 % (40.0-77.0); PLATELET COUNT (AUTO) 144 K/uL (130-400); RED CELL DISTRIBUTION WIDTH 13.9 % (11.0-15.5); WHITE BLOOD COUNT (AUTO) 5.5 K/uL (4.8-10.8)
[2020-02-07 05:45] LABS: CREATININE 7.2 mg/dL (0.5-1.5); POTASSIUM 4.7 mmol/L (3.5-5.1)
[2020-02-07] MEDS: ZOSYN 3.375GM+NS 50ML 50 ML IV SCH ×2 (06:05→17:11)
[2020-02-07] MEDS: INSULIN HUMULIN R 100 UNIT/ML 3ML SQ SCH ×4 (06:05→20:24)
[2020-02-07] MEDS: VITAMIN D3 125 MCG PO SCH (09:00)
[2020-02-07] MEDS: SEVELAMER HCL 800 MG TABLET PO SCH ×3 (09:02→17:12)
[2020-02-07] MEDS: AMLODIPINE BESYLATE 5 MG TAB PO SCH (09:03)
[2020-02-07] MEDS: METOPROLOL TARTRATE 50 MG TAB PO SCH ×2 (09:03→19:25)
[2020-02-07] MEDS: LISINOPRIL 20 MG TABLET PO SCH (09:03)
[2020-02-07] MEDS: FAMOTIDINE 20MG TAB 20 MG TAB PO SCH (09:03)
[2020-02-07] MEDS: HYDRALAZINE HCL 25 MG TABLET PO SCH ×2 (09:09→19:25)
[2020-02-07] MEDS: HEPARIN SODIUM 5000UNIT/ML 1ML VIAL SQ SCH ×2 (10:09→17:18)
[2020-02-07] MEDS: FLUCONAZOLE 100 MG TAB PO SCH (12:37)
--- NOTE | 2020-02-07 14:00 | NUR ---
dr. Moreno called re; wound care; orders entered f/u 1-2 weeks. needs abt and pain med.
--- NOTE | 2020-02-07 14:10 | NUR ---
DR. Fernandez states d/c after hemodialysis
--- NOTE | 2020-02-07 14:38 | NUR ---
wound care done right index finger removed petroleum dressing and applied non adherent gauze and covered with tape. dr. brown aware fingers is swollen, has a capillary refill less than 2-3 seconds.
--- NOTE | 2020-02-07 16:37 | NUR ---
DISPOSITION, HOME WITH EXISTING SERVICES, 'HOME HEALTH CHECK 'FOR DRESSING CHANGES, [facility] T[facility] FOR HD. DIALYSIS IN AM, THEN EXPECTED DC Addendum: 02/07/20 at 1638 by JAGDISH DAILY RN CM Amended: Links added.
[2020-02-07] MEDS: TRAMADOL HCL 50 MG TABLET PO PRN (17:12)
[2020-02-08] MEDS: ZOSYN 3.375GM+NS 50ML 50 ML IV SCH (03:25)
[2020-02-08] MEDS: TRAMADOL HCL 50 MG TABLET PO PRN (03:25)
[2020-02-08 04:00] VITALS: BP 157/73
[2020-02-08 05:28] LABS: POTASSIUM 5.2 mmol/L (3.5-5.1)
[2020-02-08 05:41] LABS: CREATININE 8.8 mg/dL (0.5-1.5)
[2020-02-08] MEDS: HEPARIN SODIUM 5000UNIT/ML 1ML VIAL SQ SCH (06:07)
[2020-02-08] MEDS: SEVELAMER HCL 800 MG TABLET PO SCH ×2 (06:07→12:00)
[2020-02-08] MEDS: INSULIN HUMULIN R 100 UNIT/ML 3ML SQ SCH ×3 (06:09→16:30)
[2020-02-08 08:00] VITALS: BP 139/65
[2020-02-08] MEDS: FAMOTIDINE 20MG TAB 20 MG TAB PO SCH (09:00)
[2020-02-08] MEDS: AMLODIPINE BESYLATE 5 MG TAB PO SCH (09:00)
[2020-02-08] MEDS: LISINOPRIL 20 MG TABLET PO SCH (09:00)
[2020-02-08] MEDS: VITAMIN D3 125 MCG PO SCH (09:00)
[2020-02-08] MEDS: HYDRALAZINE HCL 25 MG TABLET PO SCH (09:00)
[2020-02-08] MEDS: METOPROLOL TARTRATE 50 MG TAB PO SCH (09:00)
[2020-02-08 11:18] VITALS: BP 137/64
--- NOTE | 2020-02-08 12:08 | NUR ---
IN TO SEE PT. DISCHARGE PENDING FOR THIS AFTER NOON AFTER HEMO-DIALYSIS. WILL SCHEDULE FOR A FOLLOW UP VISIT IN 1 TO 2 WEEKS. HD SCHEDULE BEFORE.
--- NOTE | 2020-02-08 12:09 | NUR ---
STARTED ON HD TX. NOW.
[2020-02-08] MEDS: FLUCONAZOLE 100 MG TAB PO SCH (13:45)
--- NOTE | 2020-02-08 13:45 | NUR ---
ALL INFO SENT TO HOME HEALTH CHECK CHART TAGGED, NURSE AWARE Addendum: 02/08/20 at 1347 by JAGDISH DALIY RN CM Amended: Links added.
--- NOTE | 2020-02-08 15:09 | NUR ---
HD TX. NOW COMPLETE, TOLERATED WELL, 1 LITER FLUID REMOVED.BP147/56, HR 68, RR. 17 T.97.8
[2020-02-08 16:00] VITALS: BP 131/72
--- NOTE | 2020-02-08 16:16 | NUR ---
REPORT CALLED IN TO HOME HEALTH CHECK, TALKED TO SANDY NAIR LVN
--- NOTE | 2020-02-08 16:38 | NUR ---
DISCHARGE INST. USING TEACH BACK GIVEN TOPT. WITH SPOUSE PRESENT. RX. FOR DOXY AND FLUCONAZOLE GIVEN , WILL BE TAKING THEM FOR A PERIOD OF 4 WEEKS. FOLLOW UP APPT. WITH DR. LORENZO AND DR. MALIK PRAKASH. Sariah HARRINGTON TO BE CALLED FOR ORDERS ON LT. FOOT. SALINE LOCK RMOVED. AND PT. WHEELED DOWN STAIRS..
== END 2020-02-08 16:45 | disposition home health service (06) | DRG 252 ==
LOC: EDH 15:04 → EDHIP 15:05 → 3CH 19:33 → 3AH 02-02 09:16
PROVIDERS: ADMIT Internal Medicine; ATTEND Internal Medicine
PROC: 5A1D70Z Performance of Urinary Filtration, Intermittent, Less than 6 Hours Per Day (ICD-10-PCS; 2020-02-01)
PROC: 5A1D70Z Performance of Urinary Filtration, Intermittent, Less than 6 Hours Per Day (ICD-10-PCS; 2020-02-03)
PROC: B51W1ZZ Fluoroscopy of Dialysis Shunt/Fistula using Low Osmolar Contrast (ICD-10-PCS; 2020-02-03)
PROC: 0JBJ0ZZ Excision of Right Hand Subcutaneous Tissue and Fascia, Open Approach (ICD-10-PCS; principal; 2020-02-04 14:15)
PROC: 05LD0ZZ Occlusion of Right Cephalic Vein, Open Approach (ICD-10-PCS; 2020-02-04 14:15)
PROC: 0HRFX73 Replacement of Right Hand Skin with Autologous Tissue Substitute, Full Thickness, External Approach (ICD-10-PCS; 2020-02-04 14:15)
PROC: 5A1D70Z Performance of Urinary Filtration, Intermittent, Less than 6 Hours Per Day (ICD-10-PCS; 2020-02-05)
PROC: 0JH63XZ Insertion of Tunneled Vascular Access Device into Chest Subcutaneous Tissue and Fascia, Percutaneous Approach (ICD-10-PCS; 2020-02-05)
PROC: 02HV33Z Insertion of Infusion Device into Superior Vena Cava, Percutaneous Approach (ICD-10-PCS; 2020-02-05)
PROC: B548ZZA Ultrasonography of Superior Vena Cava, Guidance (ICD-10-PCS; 2020-02-05)
PROC: B5181ZA Fluoroscopy of Superior Vena Cava using Low Osmolar Contrast, Guidance (ICD-10-PCS; 2020-02-05)
PROC: 5A1D70Z Performance of Urinary Filtration, Intermittent, Less than 6 Hours Per Day (ICD-10-PCS; 2020-02-08)
DX: T82.898A Other specified complication of vascular prosthetic devices, implants and grafts, initial encounter (principal); N18.6 End stage renal disease; L03.115 Cellulitis of right lower limb; E11.52 Type 2 diabetes mellitus with diabetic peripheral angiopathy with gangrene; I12.0 Hypertensive chronic kidney disease with stage 5 chronic kidney disease or end stage renal disease; L02.511 Cutaneous abscess of right hand; L03.113 Cellulitis of right upper limb; E11.621 Type 2 diabetes mellitus with foot ulcer; E78.00 Pure hypercholesterolemia, unspecified; Y83.2 Surgical operation with anastomosis, bypass or graft as the cause of abnormal reaction of the patient, or of later complication, without mention of misadventure at the time of the procedure; E11.21 Type 2 diabetes mellitus with diabetic nephropathy; E78.5 Hyperlipidemia, unspecified; G47.00 Insomnia, unspecified; K59.00 Constipation, unspecified; T87.89 Other complications of amputation stump; Y83.5 Amputation of limb(s) as the cause of abnormal reaction of the patient, or of later complication, without mention of misadventure at the time of the procedure; L97.529 Non-pressure chronic ulcer of other part of left foot with unspecified severity; D64.9 Anemia, unspecified; L03.011 Cellulitis of right finger; E11.22 Type 2 diabetes mellitus with diabetic chronic kidney disease; Z99.2 Dependence on renal dialysis; Z87.81 Personal history of (healed) traumatic fracture; Z83.3 Family history of diabetes mellitus; Z79.4 Long term (current) use of insulin; Z82.5 Family history of asthma and other chronic lower respiratory diseases; Z82.49 Family history of ischemic heart disease and other diseases of the circulatory system
CPT/HCPCS: 36415; 36558; 36901; 73130; 73218; 77001; 80048; 80053; 80074; 82948; 84100; 84443; 85025; 85610; 85730; 86850; 86900; 86901; 87040; 87070; 87076; 88304; 90935; 93971; 97039; C1750; C1769; C1894; G0378; J0330; J0360; J1100; J1644; J2001; J2250; J2270; J2405; J2543; J2704; J2710; J3010; J3490; J7030; Q9967